=== PATIENT | male | born 1945 | race Caucasian/White ===

== ENCOUNTER 2017-12-07 14:54 | Observation (INO) | payer MEDICARE, OTHER ==
[2017-12-07 16:02] LABS: ABSOLUTE BASOPHILS # (AUTO) 0.1 10^3/uL (0.0-0.2); ABSOLUTE LYMPHOCYTES (AUTO) 0.8 10^3/uL (0.5-4.7); ABSOLUTE MONOCYTES (AUTO) 1.4 10^3/uL (0.1-1.4); ABSOLUTE NEUT (AUTO) 6.9 10^3/uL (1.7-8.2); BASOPHILS % (AUTO) 0.7 % (0-2); EOSINOPHILS % (AUTO) 0.3 % (0-6); HEMATOCRIT 36.8 % (37.9-51.0); HEMOGLOBIN 12.9 g/dL (13.5-17.0); LYMPHOCYTES % (AUTO) 8.4 % (13-45); MEAN CORPUSCULAR HEMOGLOBIN 30.2 pg (27.0-33.4); MEAN CORPUSCULAR HGB CONC 35.2 g/dL (32.0-36.0); MEAN CORPUSCULAR VOLUME 86 fl (80-97); MONOCYTES % (AUTO) 15.6 % (3-13); PLATELET COUNT 244 10^3/uL (150-450); RED BLOOD COUNT 4.29 10^6/uL (4.35-5.55); RED CELL DISTRIBUTION WIDTH 13.6 % (11.5-14.0); TOTAL CELLS COUNTED % (AUTO) 100 %; WHITE BLOOD COUNT 9.2 10^3/uL (4.0-10.5)
--- NOTE | 2017-12-07 16:11 | ER Document Report ---
ED General - General Chief Complaint: General Weakness Stated Complaint: FLU LIKE SYMPTOMS Time Seen by Provider: 12/07/17 15:06 Mode of Arrival: Ambulatory Information source: Patient Notes: 72-year-old male with no previous respiratory issues presents from home with concerns of shortness of breath cough flulike symptoms and body aches. Patient denies any fevers or chills denies any productivity to cough. Patient denies any chest pain. TRAVEL OUTSIDE OF THE [place] IN LAST 30 DAYS: No - HPI Onset: Just prior to arrival Onset/Duration: Sudden Quality of pain: No pain Severity: Moderate Pain Level: Denies Associated symptoms: Body/muscle aches, Nonproductive cough, Shortness of breath Exacerbated by: Denies Relieved by: Denies Similar symptoms previously: No Recently seen / treated by doctor: No Past Medical History - Social History Smoking Status: Never Smoker Cigarette use (# per day): No Chew tobacco use (# tins/day): No Smoking Education Provided: No Family History: Reviewed & Not Pertinent Review of Systems - Review of Systems Notes: REVIEW OF SYSTEMS: CONSTITUTIONAL : Denies fever, chills, or sweats. Denies recent illness. EENT: Denies eye, ear, throat, or mouth pain or symptoms. Denies nasal or sinus congestion or discharge. Denies throat, tongue, or mouth swelling or difficulty swallowing. CARDIOVASCULAR: Denies chest pain. Denies palpitations or racing or irregular heart beat. Denies ankle edema. RESPIRATORY: Admits to shortness of breath difficulty breathing nonproductive cough GASTROINTESTINAL: Denies abdominal pain or distention. Denies nausea, vomiting , or diarrhea. Denies blood in vomitus, stools, or per rectum. Denies black, tarry stools. Denies constipation. GENITOURINARY: Denies difficulty urinating, painful urination, burning, frequency, blood in urine, or discharge. MUSCULOSKELETAL: Admits to body aches SKIN: Denies rash, lesions or sores. HEMATOLOGIC : Denies easy bruising or bleeding. LYMPHATIC: Denies swollen, enlarged glands. NEUROLOGICAL: Denies confusion or altered mental status. Denies passing out or loss of consciousness. Denies dizziness or lightheadedness. Denies headache. Denies weakness or paralysis or loss of use of either side. Denies problems with gait or speech. Denies sensory loss, numbness, or tingling. Denies seizures. PSYCHIATRIC: Denies anxiety or stress. Denies depression, suicidal ideation, or homicidal ideation. ALL OTHER SYSTEMS REVIEWED AND NEGATIVE. Dictation was performed using [employer] voice recognition software PHYSICAL EXAMINATION: GENERAL: Well-appearing, well-nourished and in no acute distress. HEAD: Atraumatic, normocephalic. EYES: Pupils equal round and reactive to light, extraocular movements intact, sclera anicteric, conjunctiva are normal. ENT: Nares patent, oropharynx clear without exudates. Moist mucous membranes. NECK: Normal range of motion, supple without lymphadenopathy LUNGS: Breath sounds clear to auscultation bilaterally and equal. No wheezes rales or rhonchi. Hypoxemia placed on 2 L nasal cannula HEART: Regular rate and rhythm without murmurs ABDOMEN: Soft, nontender, nondistended abdomen. No guarding, no rebound. No masses appreciated. Musculoskeletal: Normal range of motion, no pitting or edema. No cyanosis. NEUROLOGICAL: Cranial nerves grossly intact. Normal speech, normal gait. Normal sensory, motor exams PSYCH: Normal mood, normal affect. SKIN: Warm, Dry, normal turgor, no rashes or lesions noted. Physical Exam - Vital signs Vitals: Resp Pulse Ox 24 H 94 12/07/17 15:23 12/07/17 15:23 Course - Re-evaluation Re-evalutation: 12/07/17 18:58 She was noted to be quite hypoxic satting 88% on room air, he is not on oxygen at home and has no respiratory history, he was placed on 2 L nasal cannula satting 94%. Patient is noted to be hypokalemic and potassium was ordered. Patient will be admitted to the hospitalist service for further evaluation and care of this hypoxemia - Vital Signs Vital signs: Temp Pulse Resp BP Pulse Ox 17 160/89 H 93 12/07/17 15:45 12/07/17 15:45 12/07/17 15:45 - Laboratory Result Diagrams: 12/07/17 15:42 12/07/17 15:42 Laboratory results interpreted by me: 12/07/17 12/07/17 12/07/17 15:25 15:42 15:42 RBC 4.29 L Hgb 12.9 L Hct 36.8 L Lymphocytes % 8.4 L Monocytes % 15.6 H Potassium 2.8 L* Chloride 108 H Glucose 117 H Total Protein 6.2 L Urine Protein 30 H Urine Blood MODERATE H Urine Urobilinogen 2.0 H - Diagnostic Test Radiology reviewed: Image reviewed, Reports reviewed Critical Care Note - Critical Care Note Total time excluding time spent on procedures (mins): 34 Comments: 34 minutes of critical care time spent in direct contact evaluating and reevaluating the patient, treating symptoms, reviewing labs and studies and speaking with family and consultants excluding any procedures Discharge - Discharge Clinical Impression: Hypoxemia, Hypokalemia Condition: Stable Disposition: ADMITTED OBSERVATION Admitting Provider: Hospitalist Unit Admitted: Telemetry
--- NOTE | 2017-12-07 16:14 | RADIOLOGY REPORT (SQ) ---
EXAM DESCRIPTION: CHEST PA/LAT COMPLETED DATE/TIME: 12/07/2017 4:05 pm REASON FOR STUDY: sob COMPARISON: None. EXAM PARAMETERS: NUMBER OF VIEWS: two views TECHNIQUE: Digital Frontal and Lateral radiographic views of the chest acquired. RADIATION DOSE: NA LIMITATIONS: EKG leads over the chest on the frontal view FINDINGS: LUNGS AND PLEURA: No opacities, masses or pneumothorax. No pleural effusion. MEDIASTINUM AND HILAR STRUCTURES: No masses or contour abnormalities. HEART AND VASCULAR STRUCTURES: Heart normal size. No evidence for failure. BONES: Osteopenic. No acute compression deformity in the thoracic spine HARDWARE: None in the chest. OTHER: No other significant finding. IMPRESSION: NO SIGNIFICANT RADIOGRAPHIC FINDING IN THE CHEST. TECHNICAL DOCUMENTATION: JOB ID: [id number] [employer]- All Rights Reserved
[2017-12-07 16:16] LABS: APPEARANCE,URINE SLIGHTLY-CLOUDY; BILIRUBIN,URINE NEGATIVE (NEGATIVE); COLOR,URINE YELLOW; GLUCOSE, URINE NEGATIVE (NEGATIVE); KETONES,URINE NEGATIVE (NEGATIVE); LEUKOCYTE ESTERASE,URINE NEGATIVE (NEGATIVE); NITRITE,URINE NEGATIVE (NEGATIVE); PROTEIN,URINE 30 mg/dL (NEGATIVE); URINE SPECIFIC GRAVITY 1.017
[2017-12-07 16:26] LABS: ALANINE AMINOTRANSFERASE 31 U/L (21-72); ALBUMIN 3.8 g/dL (3.5-5.0); ALKALINE PHOSPHATASE 81 U/L (38-126); ANION GAP 11 (5-19); ASPARTATE AMINO TRANSFERASE 27 U/L (17-59); BILIRUBIN,DIRECT 0.3 mg/dL (0.0-0.4); BILIRUBIN,TOTAL 1.1 mg/dL (0.2-1.3); BLOOD UREA NITROGEN 16 mg/dL (7-20); CARBON DIOXIDE 23 mmol/L (22-30); CHLORIDE 108 mmol/L (98-107); GLUCOSE 117 mg/dL (75-110); SODIUM 141.5 mmol/L (137-145); TOTAL PROTEIN 6.2 g/dL (6.3-8.2)
[2017-12-07 16:30] LABS: POTASSIUM 2.8 mmol/L (3.6-5.0)
[2017-12-07] MEDS ORDERED: POTASSIUM CHLORIDE 10 MEQ TABLET.SA PO ONE (16:34)
[2017-12-07 17:26] LABS: A TYPE INFLUENZA AG NEGATIVE (NEGATIVE); B INFLUENZA AG NEGATIVE (NEGATIVE)
[2017-12-07] MEDS ORDERED: IPRATROPIUM/ALBUTEROL 0.5-2.5 MG/3 ML AMPUL NEB ONE ×2 (17:51→17:52)
[2017-12-07] MEDS ORDERED: ACETAMINOPHEN 325 MG TABLET PO PRN (19:24)
--- NOTE | 2017-12-07 19:35 | PDOC H&P ---
History of Present Illness Admission Date/PCP: 12/07/17 17:[address] Patterson at [facility] History of Present Illness: VIOLETTE IRIZARRY is a 72 year old male who presented to the hospital with shortness of breath cough generalized weakness body aches. He is a former smoker. He is unable to give me his medical history other than the fact that he is diagnosed with prostate cancer which is followed at [facility] and he is on Zytiga. His daughter is at the bedside and they both do not have a list of his medications or past medical history. They say that he did have a heart attack many years ago but do not have the details. He also had a stroke many years ago. Has a history of hypertension. Denies a history of diabetes. No medication or past medical history available. We will ask the station to get a copy of his outpatient records. I will also request an oncology consult to with his prostate cancer management and Zytiga since he is repeating in a research trial. Chest x-ray was unremarkable. He was found to have hypokalemia and was given potassium chloride and was also hypoxic and was given duo nebs in the emergency room. Rapid flu was negative. Past Medical History Cardiac Medical History: Reports: Hypertension Social History Smoking Status: Former Smoker Frequency of Alcohol Use: Rare Family History Family History: Hypertension Parental Family History Reviewed: Yes Children Family History Reviewed: Yes Sibling(s) Family History Reviewed.: Yes Medication/Allergy Allergies/Adverse Reactions: Sulfa (Sulfonamide Antibiotics) Allergy (Verified 12/07/17 18:58) Review of Systems Constitutional: PRESENT: fever(s), weakness. ABSENT: headache(s), night sweats Eyes: ABSENT: visual disturbances Ears: ABSENT: hearing changes Nose, Mouth, and Throat: ABSENT: sore throat Cardiovascular: ABSENT: chest pain, edema Respiratory: PRESENT: cough Gastrointestinal: ABSENT: abdominal pain, heartburn, vomiting Musculoskeletal: ABSENT: joint swelling Neurological: ABSENT: paresthesias Psychiatric: ABSENT: hallucinations Physical Exam Vital Signs: Temp Pulse Resp BP Pulse Ox 17 160/89 H 93 12/07/17 15:45 12/07/17 15:45 12/07/17 15:45 Head exam: PRESENT: atraumatic, normocephalic Ear exam: PRESENT: normal external ear exam Neck exam: PRESENT: full ROM. ABSENT: JVD, tenderness, tracheal deviation Respiratory exam: PRESENT: rhonchi, unlabored. ABSENT: crackles Cardiovascular exam: PRESENT: RRR GI/Abdominal exam: PRESENT: normal bowel sounds, soft. ABSENT: tenderness Rectal exam: PRESENT: deferred Psychiatric exam: PRESENT: normal mood Additional comments: Elderly gentleman lying in bed not in acute distress Lungs: He has scattered rhonchi bilaterally no crackles heard normal respiratory effort Cardiac: S1-S2 regular, murmurs heard no JVD no thrills palpable he has trace ankle edema bilaterally no peripheral cyanosis Abdomen: Soft, no focal tenderness normal bowel sounds rectal exam deferred Skin: Warm and dry He is awake and alert oriented 3 speech is clear and fluent no facial droop. Next Results Impressions: Chest X-Ray 12/07/17 15:06 IMPRESSION: NO SIGNIFICANT RADIOGRAPHIC FINDING IN THE CHEST. Assessment & Plan - Diagnosis (1) Acute bronchitis Is this a current diagnosis for this admission?: Yes (2) Hypokalemia Is this a current diagnosis for this admission?: Yes (3) Hypoxemia Is this a current diagnosis for this admission?: Yes - Time Time Spent: 50 to 70 Minutes - Plan Summary Plan Summary: Generalized weakness hypokalemia acute viral illness and hypoxia in an elderly patient with multiple comorbidities including prostate cancer. Continue oxygen. Check serial cardiac enzymes. Neb treatments and symptomatic management. I anticipate his stay will be less than 2 midnights. He will be under observation.
[2017-12-07 20:40] LABS: CREATINE KINASE MB 2.85 ng/mL (<4.55)
[2017-12-07 20:46] LABS: TROPONIN I 0.045 ng/mL
[2017-12-07] MEDS: LEVALBUTEROL HCL NEB 0.63 MG/3 ML AMPUL NEB SCH (21:10)
[2017-12-08 02:43] LABS: CREATINE KINASE MB 4.07 ng/mL (<4.55); TROPONIN I 0.028 ng/mL
[2017-12-08] MEDS: LANSOPRAZOLE 15 MG TAB.RAP.DR PO SCH (05:27)
[2017-12-08] MEDS: LEVALBUTEROL HCL NEB 0.63 MG/3 ML AMPUL NEB SCH ×3 (07:51→20:05)
[2017-12-08 08:31] LABS: ABSOLUTE BASOPHILS # (AUTO) 0.1 10^3/uL (0.0-0.2); ABSOLUTE EOSINOPHILS # (AUTO) 0.1 10^3/uL (0.0-0.6); ABSOLUTE LYMPHOCYTES (AUTO) 1.3 10^3/uL (0.5-4.7); ABSOLUTE NEUT (AUTO) 5.6 10^3/uL (1.7-8.2); EOSINOPHILS % (AUTO) 1.7 % (0-6); HEMATOCRIT 35.8 % (37.9-51.0); HEMOGLOBIN 12.5 g/dL (13.5-17.0); LYMPHOCYTES % (AUTO) 16.1 % (13-45); MEAN CORPUSCULAR HEMOGLOBIN 29.9 pg (27.0-33.4); MEAN CORPUSCULAR VOLUME 85 fl (80-97); MONOCYTES % (AUTO) 11.8 % (3-13); PLATELET COUNT 219 10^3/uL (150-450); RED BLOOD COUNT 4.19 10^6/uL (4.35-5.55); RED CELL DISTRIBUTION WIDTH 13.9 % (11.5-14.0); SEGMENTED NEUTROPHILS % (AUTO) 69.4 % (42-78); TOTAL CELLS COUNTED % (AUTO) 100 %; WHITE BLOOD COUNT 8.1 10^3/uL (4.0-10.5)
--- NOTE | 2017-12-08 08:48 | PDOC CONSULTATION ---
Consultation Consult Date: 12/08/17 Attending physician:: NOLAN OAKES Consult reason:: cough, sob, confusion, congestion, uri, stage iv prostate ca History of Present Illness Admission Date/PCP: 12/07/17 17:58 Patient complains of: cough, sob History of Present Illness: 72-year-old male with known history of stage IV prostate cancer, the patient himself is a poor historian, but he does have family at bedside who knows some of what is been going on, he does see a [facility] onc[facility] physician, as noted in the hospitalist note, and has been on Zytiga plus prednisone, although they mention its on investigational protocol this is a standard therapy for stage IV prostate cancer so most likely on standard therapy. It sounds like he had noted bone, lung and liver metastasis at diagnosis, and has been on this therapy for what sounds like about a year. He is going to be coming up on reimaging scans for restaging, but it sounds like she has been tolerating the therapy well. He comes in with cough, congestion, confusion, and family feels like they have been more and more confused over the last 6 months, possibly early signs of dementia. Past Medical History Cardiac Medical History: Reports: Hypertension Malignancy Medical History: Reports: Other - Prostate cancer Social History Information Source: Relative Smoking Status: Former Smoker Frequency of Alcohol Use: None Drugs: None - Advance Directive Resuscitation Status: Full Code Family History Family History: Hypertension Parental Family History Reviewed: Yes Children Family History Reviewed: Yes Sibling(s) Family History Reviewed.: Yes Medication/Allergy Home Medications: Atorvastatin Calcium [Lipitor 80 mg Tablet] 80 mg PO QHS 12/07/17 Prednisone [Deltasone 5 mg Tablet] 5 mg PO DAILY 12/07/17 Spironolactone [Aldactone 25 mg Tablet] 12.5 mg PO DAILY 12/07/17 Allergies/Adverse Reactions: Sulfa (Sulfonamide Antibiotics) Allergy (Verified 12/07/17 18:58) Review of Systems ROS unobtainable: Due to mental status Physical Exam Vital Signs: Temp Pulse Resp BP Pulse Ox 98.4 F 72 18 171/92 H 99 12/08/17 08:01 12/08/17 08:01 12/08/17 08:01 12/08/17 08:01 12/08/17 08:01 Intake & Output 12/07/17 12/08/17 12/09/17 06:59 06:59 06:59 Intake Total 100 Output Total 175 Balance -75 Weight 103.2 kg General appearance: PRESENT: no acute distress, well-developed, well-nourished Head exam: PRESENT: atraumatic, normocephalic Eye exam: PRESENT: conjunctiva pink, EOMI, PERRLA. ABSENT: scleral icterus Ear exam: PRESENT: normal external ear exam Mouth exam: PRESENT: moist, tongue midline Neck exam: ABSENT: carotid bruit, JVD, lymphadenopathy, thyromegaly Respiratory exam: PRESENT: clear to auscultation magan. ABSENT: rales, rhonchi, wheezes Cardiovascular exam: PRESENT: RRR. ABSENT: diastolic murmur, rubs, systolic murmur Pulses: PRESENT: normal dorsalis pedis pul Vascular exam: PRESENT: normal capillary refill GI/Abdominal exam: PRESENT: normal bowel sounds, soft. ABSENT: distended, guarding, mass, organolmegaly, rebound, tenderness Rectal exam: PRESENT: deferred Extremities exam: PRESENT: full ROM. ABSENT: calf tenderness, clubbing, pedal edema Neurological exam: PRESENT: alert, awake, oriented to person, oriented to place , oriented to time, oriented to situation, CN II-XII grossly intact. ABSENT: motor sensory deficit Psychiatric exam: PRESENT: appropriate affect, normal mood. ABSENT: homicidal ideation, suicidal ideation Skin exam: PRESENT: dry, intact, warm. ABSENT: cyanosis, rash Results Laboratory Results: 12/08/17 08:11 12/08/17 08:11 WBC 8.1 RBC 4.19 L Hgb 12.5 L Hct 35.8 L MCV 85 MCH 29.9 MCHC 35.0 RDW 13.9 Plt Count 219 Seg Neutrophils % 69.4 Lymphocytes % 16.1 Monocytes % 11.8 Eosinophils % 1.7 Basophils % 1.0 Absolute Neutrophils 5.6 Absolute Lymphocytes 1.3 Absolute Monocytes 1.0 Absolute Eosinophils 0.1 Absolute Basophils 0.1 12/07/17 12/08/17 19:59 02:04 CK-MB (CK-2) 2.85 4.07 Troponin I 0.045 0.028 Impressions: Chest X-Ray 12/07/17 15:06 IMPRESSION: NO SIGNIFICANT RADIOGRAPHIC FINDING IN THE CHEST. Assessment & Plan - Diagnosis (1) Prostate cancer Is this a current diagnosis for this admission?: Yes Plan: Patient with stage IV prostate cancer, we will continue patient on Zytiga and prednisone, it is not myelosuppressive and should not interact with any other medications that he is on. So we will write for him to continue home medication. We have offered our services as an outpatient to see patient for this condition and assist [facility] with this care here in [place]. They will be thinking about it. We will follow. - Time Time Spent: Greater than 70 Minutes - Inpatient Certification Based on my medical assessment, after consideration of the patient's comorbidities, presenting symptoms, or acuity I expect that the services needed warrant INPATIENT care.: Yes I certify that my determination is in accordance with my understanding of Medicare's requirements for reasonable and necessary INPATIENT services [42 CFR 412.3e].: Yes Medical Necessity: Need For Continuous Telemetry Monitoring, Need for IV Antibiotics
[2017-12-08 08:55] LABS: ANION GAP 10 (5-19); BLOOD UREA NITROGEN 15 mg/dL (7-20); CARBON DIOXIDE 25 mmol/L (22-30); CHLORIDE 107 mmol/L (98-107); GLUCOSE 110 mg/dL (75-110); MAGNESIUM 2.1 mg/dL (1.6-2.3); PHOSPHORUS 3.3 mg/dL (2.5-4.5); POTASSIUM 3.1 mmol/L (3.6-5.0); SODIUM 141.6 mmol/L (137-145)
[2017-12-08 09:06] LABS: CREATINE KINASE MB 4.08 ng/mL (<4.55); TROPONIN I 0.02 ng/mL
[2017-12-08] MEDS: ENOXAPARIN SODIUM INJ 40 MG/0.4 ML DISP.SYRIN SUBCUT SCH (10:25)
[2017-12-08] MEDS ORDERED: POTASSIUM CHLORIDE 10 MEQ TABLET.SA PO ONE (11:45)
--- NOTE | 2017-12-08 19:25 | PDOC PROGRESS REPORT ---
Subjective Progress Note for:: 12/08/17 Subjective:: Pt states that his breathing to better. Pt states that he is doing well. Reason For Visit: GENERALIZED WEAKNESS, ACUTE HYPOXIA, VIRAL Physical Exam Vital Signs: Temp Pulse Resp BP Pulse Ox 98.0 F 73 18 123/72 95 12/08/17 16:25 12/08/17 16:25 12/08/17 16:25 12/08/17 16:25 12/08/17 16:25 Intake & Output 12/07/17 12/08/17 12/09/17 06:59 06:59 06:59 Intake Total 100 624 Output Total 175 Balance -75 624 Weight 103.2 kg General appearance: PRESENT: no acute distress, well-developed, well-nourished Head exam: PRESENT: atraumatic, normocephalic Eye exam: PRESENT: conjunctiva pink, EOMI. ABSENT: scleral icterus Ear exam: PRESENT: normal external ear exam Mouth exam: PRESENT: moist, tongue midline Neck exam: ABSENT: carotid bruit, JVD, lymphadenopathy, thyromegaly Respiratory exam: PRESENT: other - + coarse right side, + good breath sounds in upper lobes Cardiovascular exam: PRESENT: RRR. ABSENT: diastolic murmur, rubs, systolic murmur Pulses: PRESENT: normal dorsalis pedis pul Vascular exam: PRESENT: normal capillary refill GI/Abdominal exam: PRESENT: normal bowel sounds, soft. ABSENT: distended, guarding, mass, organolmegaly, rebound, tenderness Rectal exam: PRESENT: deferred Extremities exam: PRESENT: full ROM. ABSENT: calf tenderness, clubbing, pedal edema Neurological exam: PRESENT: alert, altered, oriented to person, oriented to place, CN II-XII grossly intact Psychiatric exam: PRESENT: appropriate affect, normal mood. ABSENT: homicidal ideation, suicidal ideation Skin exam: PRESENT: dry, intact, warm. ABSENT: cyanosis, rash Results Laboratory Results: 12/08/17 08:11 12/08/17 08:11 12/08/17 12/08/17 12/08/17 08:11 08:11 08:11 WBC 8.1 RBC 4.19 L Hgb 12.5 L Hct 35.8 L MCV 85 MCH 29.9 MCHC 35.0 RDW 13.9 Plt Count 219 Seg Neutrophils % 69.4 Lymphocytes % 16.1 Monocytes % 11.8 Eosinophils % 1.7 Basophils % 1.0 Absolute Neutrophils 5.6 Absolute Lymphocytes 1.3 Absolute Monocytes 1.0 Absolute Eosinophils 0.1 Absolute Basophils 0.1 Sodium 141.6 Potassium 3.1 L Chloride 107 Carbon Dioxide 25 Anion Gap 10 BUN 15 Creatinine 0.87 Est GFR ( Amer) > 60 Est GFR (Non-Af Amer) > 60 Glucose 110 Calcium 9.0 Phosphorus 3.3 Magnesium 2.1 TSH 2.10 12/07/17 12/08/17 12/08/17 19:59 02:04 08:11 CK-MB (CK-2) 2.85 4.07 4.08 Troponin I 0.045 0.028 0.020 Impressions: Chest X-Ray 12/07/17 15:06 IMPRESSION: NO SIGNIFICANT RADIOGRAPHIC FINDING IN THE CHEST. Assessment & Plan - Diagnosis (1) Acute bronchitis Is this a current diagnosis for this admission?: Yes Plan: Will CXR in am. Will place pt on Levaquin. (2) Hypokalemia Is this a current diagnosis for this admission?: Yes Plan: Pt give Potassium replacement. Will check BMP and Magnesium in am . (3) Prostate cancer Is this a current diagnosis for this admission?: Yes Plan: Per Oncology. (4) Debility Is this a current diagnosis for this admission?: Yes Plan: PT/OT order. - Time Time Spent with patient: 15-24 minutes
--- NOTE | 2017-12-08 20:28 | RADIOLOGY REPORT (SQ) ---
EXAM DESCRIPTION: CHEST PA/LAT COMPLETED DATE/TIME: 12/08/2017 8:13 pm REASON FOR STUDY: shortness of breath COMPARISON: 12/07/2017. EXAM PARAMETERS: NUMBER OF VIEWS: two views TECHNIQUE: Digital Frontal and Lateral radiographic views of the chest acquired. RADIATION DOSE: NA LIMITATIONS: none FINDINGS: LUNGS AND PLEURA: No opacities, masses or pneumothorax. No pleural effusion. MEDIASTINUM AND HILAR STRUCTURES: No masses or contour abnormalities. HEART AND VASCULAR STRUCTURES: Heart normal size. No evidence for failure. BONES: No acute findings. HARDWARE: None in the chest. OTHER: No other significant finding. IMPRESSION: NO SIGNIFICANT RADIOGRAPHIC FINDING IN THE CHEST. TECHNICAL DOCUMENTATION: JOB ID: [id number] [employer]- All Rights Reserved
[2017-12-08] MEDS ORDERED: LEVOFLOXACIN 500 MG/D5W RTU 500 MG/100 ML RTUPB IV SCH (22:00)
[2017-12-09] MEDS: LANSOPRAZOLE 15 MG TAB.RAP.DR PO SCH (06:13)
[2017-12-09] MEDS ORDERED: ABIRATERONE ACETATE 1000 MG PO SCH (08:00)
--- NOTE | 2017-12-09 08:11 | PDOC PROGRESS REPORT ---
Subjective Progress Note for:: 12/09/17 Subjective:: Patient states that he is feeling better. He is able to get up out of bed and walk to the [place], which is a big improvement. He is very concerned about his . He took his last Zytiga this morning. He states that he called for a refill last week, but this still has not arrived. ROS: denies dyspnea. Eating well. Reason For Visit: Oncology consult was requested for prostate cancer. Physical Exam Vital Signs: Temp Pulse Resp BP Pulse Ox 97.4 F 73 18 165/93 H 96 12/09/17 04:07 12/09/17 04:07 12/09/17 04:07 12/09/17 04:07 12/09/17 04:07 Intake & Output 12/08/17 12/09/17 12/10/17 06:59 06:59 06:59 Intake Total 100 824 Output Total 175 Balance -75 824 Weight 103.2 kg General appearance: PRESENT: no acute distress, other - Overweight, 72 year old male, up walking around in room. Head exam: PRESENT: atraumatic Respiratory exam: PRESENT: unlabored Neurological exam: PRESENT: alert, awake Psychiatric exam: ABSENT: agitated, depressed Focused psych exam: ABSENT: pressured speech, restlessness Skin exam: PRESENT: normal color Results Laboratory Results: 12/08/17 08:11 12/08/17 08:11 12/08/17 12/08/17 12/08/17 08:11 08:11 08:11 WBC 8.1 RBC 4.19 L Hgb 12.5 L Hct 35.8 L MCV 85 MCH 29.9 MCHC 35.0 RDW 13.9 Plt Count 219 Seg Neutrophils % 69.4 Lymphocytes % 16.1 Monocytes % 11.8 Eosinophils % 1.7 Basophils % 1.0 Absolute Neutrophils 5.6 Absolute Lymphocytes 1.3 Absolute Monocytes 1.0 Absolute Eosinophils 0.1 Absolute Basophils 0.1 Sodium 141.6 Potassium 3.1 L Chloride 107 Carbon Dioxide 25 Anion Gap 10 BUN 15 Creatinine 0.87 Est GFR ( Amer) > 60 Est GFR (Non-Af Amer) > 60 Glucose 110 Calcium 9.0 Phosphorus 3.3 Magnesium 2.1 TSH 2.10 12/07/17 12/08/17 12/08/17 19:59 02:04 08:11 CK-MB (CK-2) 2.85 4.07 4.08 Troponin I 0.045 0.028 0.020 Impressions: Chest X-Ray 12/08/17 00:00 IMPRESSION: NO SIGNIFICANT RADIOGRAPHIC FINDING IN THE CHEST. Assessment & Plan - Diagnosis (1) Prostate cancer Is this a current diagnosis for this admission?: Yes Plan: Currently stable, but needs to continue with current meds. I tried to call the specialty pharmacy this morning, but they were not yet open. Meds needs to be overnighted today, if possible. (2) Acute bronchitis Is this a current diagnosis for this admission?: Yes Plan: Improving. Agree with current treatment plan. Please call if needed. Will follow as outpatient if he desires. He is currently followed by [facility].
[2017-12-09] MEDS: LEVALBUTEROL HCL NEB 0.63 MG/3 ML AMPUL NEB SCH (08:40)
[2017-12-09] MEDS ORDERED: PREDNISONE 5 MG TABLET PO SCH (09:00)
[2017-12-09 10:23] VITALS: BP 108/60
[2017-12-09] MEDS: ENOXAPARIN SODIUM INJ 40 MG/0.4 ML DISP.SYRIN SUBCUT SCH (10:23)
--- NOTE | 2017-12-09 11:10 | PDOC DISCHARGE SUMMARY ---
General - Admit/Disc Date/PCP Admission Date/Primary Care Provider: 12/07/17 17:58 Discharge Date: 12/09/17 - Discharge Diagnosis (1) Acute bronchitis Is this a current diagnosis for this admission?: Yes Summary: She was placed on steroids, breathing treatments, and antibiotics. Patient's Restoril function improved lately. Patient was discharged home on Levaquin and albuterol inhaler. (2) Debility Is this a current diagnosis for this admission?: Yes Summary: Patient has been ambulating safely around room and with physical therapy. Will arrange for home health PT (3) Hypokalemia Is this a current diagnosis for this admission?: Yes Summary: Pt received potassium replacement. (4) Prostate cancer Is this a current diagnosis for this admission?: Yes Summary: Patient continued on home medication. - Additional Information Resuscitation Status: Full Code Discharge Diet: Cardiac Discharge Activity: Activity As Tolerated Prescriptions: Levofloxacin [Levaquin 500 mg Tablet] 500 mg PO DAILY #6 tablet Home Medications: Atorvastatin Calcium [Lipitor 80 mg Tablet] 80 mg PO QHS 12/07/17 Prednisone [Deltasone 5 mg Tablet] 5 mg PO [id number] 12/07/17 Spironolactone [Aldactone 25 mg Tablet] 12.5 mg PO DAILY 12/07/17 Abiraterone Acetate [Zytiga 250 mg Tablet] 1,000 mg PO QAM 12/08/17 Amlodipine Besylate [Norvasc 5 mg Tablet] 5 mg PO DAILY 12/08/17 Clonidine HCl [Catapres 0.1 mg Tablet] 0.1 mg PO DAILY 12/08/17 Clopidogrel Bisulfate [Clopidogrel] 75 mg PO DAILY 12/08/17 Losartan Potassium [Cozaar 100 mg Tablet] 100 mg PO DAILY 12/08/17 Levofloxacin [Levaquin 500 mg Tablet] 500 mg PO DAILY #6 tablet 12/09/17 History of Present Illness Patient complains of: Generalized weakness with body aches. History of Present Illness: VIOLETTE IRIZARRY is a 72 year old male sent to the emergency department with complaint of generalized weakness and body aches. Patient states that he also was coughing as well. Patient's had been sick and was hospitalist as well. Patient's x-ray did not demonstrate infiltrate however patient's presentation was consistent with acute bronchitis. Patient was placed on steroids and breathing treatments. Patient was placed on Levaquin for bronchitis. Patient work with PT OT and has done well. Patient was stable for discharge home. Patient was seen by oncology during hospitalization who agreed with continuation of patient's medication. Hospital Course Hospital Course: VIOLETTE IRIZARRY is a 72 year old male sent to the emergency department with complaint of generalized weakness and body aches. Patient states that he also was coughing as well. Patient's had been sick and was hospitalist as well. Patient's x-ray did not demonstrate infiltrate however patient's presentation was consistent with acute bronchitis. Patient was placed on steroids and breathing treatments. Patient was placed on Levaquin for bronchitis. Patient work with PT OT and has done well. Patient was stable for discharge home. Patient was seen by oncology during hospitalization who agreed with continuation of patient's medication. Physical Exam Vital Signs: Temp Pulse Resp BP Pulse Ox 98.0 F 71 16 108/60 97 12/09/17 07:00 12/09/17 07:00 12/09/17 07:00 12/09/17 07:00 12/09/17 07:00 Intake & Output 12/08/17 12/09/17 12/10/17 06:59 06:59 06:59 Intake Total 100 824 Output Total 175 Balance -75 824 Weight 103.2 kg General appearance: PRESENT: no acute distress, well-developed, well-nourished Head exam: PRESENT: atraumatic, normocephalic Eye exam: PRESENT: conjunctiva pink, EOMI. ABSENT: scleral icterus Ear exam: PRESENT: normal external ear exam Mouth exam: PRESENT: moist, tongue midline Neck exam: ABSENT: carotid bruit, JVD, lymphadenopathy, thyromegaly Respiratory exam: PRESENT: clear to auscultation magan. ABSENT: rales, rhonchi, wheezes Cardiovascular exam: PRESENT: RRR. ABSENT: diastolic murmur, rubs, systolic murmur Pulses: PRESENT: normal dorsalis pedis pul Vascular exam: PRESENT: normal capillary refill GI/Abdominal exam: PRESENT: normal bowel sounds, soft. ABSENT: distended, guarding, mass, organolmegaly, rebound, tenderness Rectal exam: PRESENT: deferred Extremities exam: PRESENT: full ROM. ABSENT: calf tenderness, clubbing, pedal edema Neurological exam: PRESENT: alert, awake, oriented to person, oriented to place , oriented to time, oriented to situation, CN II-XII grossly intact. ABSENT: motor sensory deficit Psychiatric exam: PRESENT: appropriate affect, normal mood. ABSENT: homicidal ideation, suicidal ideation Skin exam: PRESENT: dry, intact, warm. ABSENT: cyanosis, rash Results Laboratory Results: 12/08/17 08:11 12/08/17 08:11 12/07/17 12/08/17 12/08/17 19:59 02:04 08:11 CK-MB (CK-2) 2.85 4.07 4.08 Troponin I 0.045 0.028 0.020 Impressions: Chest X-Ray 12/08/17 00:00 IMPRESSION: NO SIGNIFICANT RADIOGRAPHIC FINDING IN THE CHEST. Plan Time Spent: Greater than 30 Minutes
== END 2017-12-09 12:25 | disposition home or self-care (01) ==
LOC: ER 14:54 → EH 17:58 → OBSVTOIN 17:58 → INTOOBSV 17:58 → 4N 20:49
PROVIDERS: ADMIT Internal Medicine; ATTEND Internal Medicine
PROC: 3E0F7GC Introduction of Other Therapeutic Substance into Respiratory Tract, Via Natural or Artificial Opening (ICD-10-PCS; principal; 2017-12-07)
DX: J20.9 Acute bronchitis, unspecified (principal); R53.81 Other malaise; E87.6 Hypokalemia; C61 Malignant neoplasm of prostate; R41.0 Disorientation, unspecified; R09.02 Hypoxemia; E66.3 Overweight; R53.1 Weakness; R52 Pain, unspecified; Z68.36 Body mass index [BMI] 36.0-36.9, adult; I25.2 Old myocardial infarction; Z79.899 Other long term (current) drug therapy; Z79.02 Long term (current) use of antithrombotics/antiplatelets; Z87.891 Personal history of nicotine dependence; Z82.49 Family history of ischemic heart disease and other diseases of the circulatory system; Z86.73 Personal history of transient ischemic attack (TIA), and cerebral infarction without residual deficits
CPT/HCPCS: 94640 ×4; 99285; 36415 ×2; 82553 ×2; 83735; 84100; 84443; 85025 ×2; 80048; 80053; 81001; 84484 ×2; 85379; 87804; 71046 ×2; 97110; 97162; G0378 ×4; A9270 ×8; J1956; J1650; J3490; G8978; G8979; J7614; J7620

== ENCOUNTER 2018-08-31 03:47 | Inpatient (IN) | payer MEDICARE ==
--- NOTE | 2018-08-31 04:18 | ER Document Report ---
ED General - General Chief Complaint: Bloody Stools Stated Complaint: BLOOD IN STOOL Time Seen by Provider: 08/31/18 04:01 Notes: Pt is a 73 y/o male presenting to the ED via EMS for vomiting and diarrhea. Pt. stated that around 0030 this morning he started with diarrhea, stating about 7 episodes noting bright red blood in stool. Stated that he has also vomited x3 NBNB. Pt. denies abd pain, fever, CP, SOB, dysuria. Stated that hes rectum hurts. Stated that he had a colonoscopy on 08/26 and Polyps and a Tumor biopsy were removed by Dr. Jimbo Black. Stated that he was instructed to stop his Clopidogrel the day prior to that procedure. Stated that he thinks he may have taken one Clopidogrel on accident since then, but stated he realized he did it and did not continue to take it. Per EMS initial on scene BP was 92/62 with NSS bolus of 800cc EMS was able to get BP to 108/66. Initial BP in ED was 120 systolic. Past medical history: Prostate, lung, bone cancer, CVA, coronary artery disease , hypertension, hyperlipidemia Medications: Spironolactone, clonidine, clopidogrel, atorvastatin, sertraline, losartan HCTZ Allergies: Sulfa TRAVEL OUTSIDE OF THE [place] IN LAST 30 DAYS: No - Related Data Allergies/Adverse Reactions: Sulfa (Sulfonamide Antibiotics) Allergy (Verified 12/07/17 18:58) Past Medical History - General Information source: Patient - Social History Smoking Status: Never Smoker Lives with: Family Family History: Hypertension Patient has suicidal ideation: No Patient has homicidal ideation: No - Past Medical History Cardiac Medical History: Reports: Hx Hypertension Renal/ Medical History: Denies: Hx Peritoneal Dialysis Review of Systems - Review of Systems Constitutional: See HPI EENT: No symptoms reported Cardiovascular: See HPI Respiratory: See HPI Gastrointestinal: See HPI Genitourinary: See HPI Musculoskeletal: See HPI Skin: See HPI Hematologic/Lymphatic: See HPI Neurological/Psychological: No symptoms reported Physical Exam - Vital signs Vitals: Temp 97.7 F 08/31/18 03:51 - Notes Notes: GENERAL: Alert, interacts well. No acute distress. Pallor HEAD: Normocephalic, atraumatic. EYES: Pupils equal, round, and reactive to light. Extraocular movements intact. ENT: Oral mucosa moist, tongue midline. NECK: Full range of motion. Supple. Trachea midline. LUNGS: Clear to auscultation bilaterally, no wheezes, rales, or rhonchi. No respiratory distress. HEART: Regular rate and rhythm. No murmur ABDOMEN: Soft, non-tender. Non-distended. Bowel sounds present in all 4 quadrants. EXTREMITIES: Moves all 4 extremities spontaneously. No edema, normal radial and dorsalis pedis pulses bilaterally. No cyanosis. BACK: no cervical, thoracic, lumbar midline tenderness. No saddle anesthesia, normal distal neurovascular exam. NEUROLOGICAL: Alert and oriented x3. Normal speech. cranial nerves II through XII grossly intact. PSYCH: Normal affect, normal mood. SKIN: Warm, dry, normal turgor, pallor. No rashes or lesions noted. RECTUM: no obvious fissures seen, no external hemorrhoids seen. Pain upon internal exam, no thrombosed hemorrhoids felt patient not actively bleeding. No melena seen. Course - Re-evaluation Re-evalutation: Discussed case with Dr. Choi who stated to transfuse the Pt. as quick as possible and he would call his team to come into the ED for an emergent colonoscopy. He also stated to call the hospitalist for admission and bed assignment. Pt currently hemodynamically stable. No active bleeding from rectum upon exam. Patient denies any more episodes of diarrhea or rectal bleeding in the emergency department. Dr. Jordan contacted who will admit to ICU bed. 0615 08/31/2018 Current Vitals BP 156/86 HR 71 RR 14 SPO@ RA 97% - Vital Signs Vital signs: Temp Pulse Resp BP Pulse Ox 98.5 F 66 16 141/88 H 100 08/31/18 06:05 08/31/18 06:30 08/31/18 06:30 08/31/18 06:28 08/31/18 06:30 - Laboratory Result Diagrams: 08/31/18 04:04 08/31/18 04:04 Laboratory results interpreted by me: 08/31/18 08/31/18 08/31/18 04:04 04:04 04:04 WBC 12.6 H RBC 2.76 L Hgb 8.2 L Hct 23.9 L RDW 14.7 H Seg Neutrophils % 78.9 H Lymphocytes % 12.0 L Absolute Neutrophils 9.9 H Chloride 109 H Carbon Dioxide 21 L BUN 21 H Glucose 120 H AST 14 L Total Protein 5.6 L Albumin 3.1 L Crossmatch See Detail Discharge - Discharge Clinical Impression: Rectal bleeding Condition: Fair Disposition: ADMITTED INPATIENT Admitting Provider: [facility] Unit Admitted: ICU
[2018-08-31 04:23] LABS: ABSOLUTE BASOPHILS # (AUTO) 0.1 10^3/uL (0.0-0.2); ABSOLUTE EOSINOPHILS # (AUTO) 0.2 10^3/uL (0.0-0.6); ABSOLUTE LYMPHOCYTES (AUTO) 1.5 10^3/uL (0.5-4.7); ABSOLUTE MONOCYTES (AUTO) 0.9 10^3/uL (0.1-1.4); ABSOLUTE NEUT (AUTO) 9.9 10^3/uL (1.7-8.2); EOSINOPHILS % (AUTO) 1.3 % (0-6); HEMATOCRIT 23.9 % (37.9-51.0); HEMOGLOBIN 8.2 g/dL (13.5-17.0); MEAN CORPUSCULAR HEMOGLOBIN 29.5 pg (27.0-33.4); MEAN CORPUSCULAR HGB CONC 34.1 g/dL (32.0-36.0); MEAN CORPUSCULAR VOLUME 87 fl (80-97); MONOCYTES % (AUTO) 6.8 % (3-13); PLATELET COUNT 291 10^3/uL (150-450); RED BLOOD COUNT 2.76 10^6/uL (4.35-5.55); RED CELL DISTRIBUTION WIDTH 14.7 % (11.5-14.0); SEGMENTED NEUTROPHILS % (AUTO) 78.9 % (42-78); TOTAL CELLS COUNTED % (AUTO) 100 %; WHITE BLOOD COUNT 12.6 10^3/uL (4.0-10.5)
[2018-08-31 04:37] LABS: INTERNATIONAL RATION (INR) 0.94; PARTIAL THROMBOPLASTIN TIME 24.5 SEC (23.5-35.8); PROTHROMBIN TIME 13.1 SEC (11.4-15.4)
[2018-08-31 04:39] LABS: ALANINE AMINOTRANSFERASE 25 U/L (21-72); ALBUMIN 3.1 g/dL (3.5-5.0); ALKALINE PHOSPHATASE 87 U/L (38-126); ANION GAP 11 (5-19); ASPARTATE AMINO TRANSFERASE 14 U/L (17-59); BILIRUBIN,DIRECT 0.1 mg/dL (0.0-0.4); BILIRUBIN,TOTAL 0.3 mg/dL (0.2-1.3); BLOOD UREA NITROGEN 21 mg/dL (7-20); CALCIUM 8.9 mg/dL (8.4-10.2); CARBON DIOXIDE 21 mmol/L (22-30); CHLORIDE 109 mmol/L (98-107); GLUCOSE 120 mg/dL (75-110); POTASSIUM 3.8 mmol/L (3.6-5.0); TOTAL PROTEIN 5.6 g/dL (6.3-8.2)
[2018-08-31] MEDS ORDERED: NORMAL SALINE 250 ML IV PRN ×2 (04:53)
[2018-08-31] MEDS ORDERED: ACETAMINOPHEN 325 MG TABLET PO PRN (05:27)
[2018-08-31] MEDS ORDERED: ONDANSETRON HCL INJ/PF 4 MG/2 ML SDV IV PRN (05:27)
[2018-08-31] MEDS ORDERED: IPRATROPIUM/ALBUTEROL 0.5-2.5 MG/3 ML AMPUL NEB PRN (05:27)
[2018-08-31] MEDS ORDERED: NORMAL SALINE 1000 ML 1,000 ML IV ONE (05:32)
[2018-08-31] MEDS ORDERED: DIPHENHYDRAMINE HCL 50 MG/ML VIAL ONE ×3 (05:53→17:43)
[2018-08-31] MEDS ORDERED: ONDANSETRON HCL INJ/PF 4 MG/2 ML SDV ONE ×3 (05:53→17:43)
[2018-08-31] MEDS ORDERED: GLUCAGON,HUMAN RECOMB 1 MG INJ ONE ×2 (05:54→17:44)
[2018-08-31] MEDS ORDERED: FLUMAZENIL INJ 0.5 MG/5 ML VIAL ONE ×2 (05:54→17:44)
[2018-08-31] MEDS ORDERED: NALOXONE HCL INJ/PF 0.4 MG/1 ML SDV ONE ×2 (05:54→17:44)
[2018-08-31] MEDS ORDERED: EPINEPHRINE INJ 1 MG/10 ML DISP.SYRIN ONE ×2 (05:54→17:44)
[2018-08-31] MEDS: MIDAZOLAM 2 MG/2 ML INJ ONE ×3 (06:34→18:10)
[2018-08-31] MEDS: FENTANYL CITRATE INJ/PF 100 MCG/2 ML AMPUL ONE ×3 (06:36→18:12)
--- NOTE | 2018-08-31 08:02 | PDOC H&P ---
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 CVA without residual deficits, coronary artery disease, hypertension and dyslipidemia. Patient presents 5 days after colonoscopy for tumor biopsy and polypectomy with 6 hours of bright red blood per rectum x7. In the emergency room he is found to have a significant drop in his hemoglobin from 12.5-8.2. No history of coagulopathy, Plavix not yet resumed post endoscopy. He is ordered 2 units of packed red blood cells and GI consult then referred to the hospitalist for admission. Patient denies chest pain shortness of breath nausea or vomiting. Past Medical History Cardiac Medical History: Reports: Coronary Artery Disease, Hypertension Neurological Medical History: Denies: Seizures Malignancy Medical History: Reports: Bone Cancer, Lung Cancer, Other - Prostate cancer with metastases GI Medical History: Reports: Gastroesophageal Reflux Disease Denies: Hepatitis, Hiatal Hernia, Peptic Ulcer Disease, Ulcerative Colitis Past Surgical History Past Surgical History: Reports: Other - Colonoscopy August 26, 2018 Social History Information Source: Patient, Emergency Med Personnel, [facility] Records Lives with: Family Smoking Status: Never Smoker Frequency of Alcohol Use: None Drugs: None - Advance Directive Resuscitation Status: Full Code Family History Family History: Hypertension Parental Family History Reviewed: Yes Children Family History Reviewed: Yes Sibling(s) Family History Reviewed.: Yes Medication/Allergy Allergies/Adverse Reactions: Sulfa (Sulfonamide Antibiotics) Allergy (Verified 12/07/17 18:58) Review of Systems Constitutional: ABSENT: chills, fever(s), headache(s), weight gain, weight loss Eyes: ABSENT: visual disturbances Ears: ABSENT: hearing changes Cardiovascular: ABSENT: chest pain, dyspnea on exertion, edema, orthropnea, palpitations Respiratory: ABSENT: cough, hemoptysis Gastrointestinal: ABSENT: abdominal pain, constipation, diarrhea, hematemesis, hematochezia, nausea, vomiting Genitourinary: ABSENT: dysuria, hematuria Musculoskeletal: ABSENT: joint swelling Integumentary: ABSENT: rash, wounds Neurological: ABSENT: abnormal gait, abnormal speech, confusion, dizziness, focal weakness, syncope Psychiatric: ABSENT: anxiety, depression, homidical ideation, suicidal ideation Endocrine: ABSENT: cold intolerance, heat intolerance, polydipsia, polyuria Hematologic/Lymphatic: ABSENT: easy bleeding, easy bruising Physical Exam Vital Signs: Temp Pulse Resp BP Pulse Ox 98.5 F 73 14 125/64 98 08/31/18 06:05 08/31/18 07:35 08/31/18 07:35 08/31/18 07:35 08/31/18 07:35 Intake & Output 08/29/18 08/30/18 08/31/18 11:59 11:59 11:59 Intake Total 0 Balance 0 Weight 100 kg General appearance: PRESENT: cooperative, mild distress. ABSENT: disheveled Head exam: PRESENT: atraumatic, normocephalic Eye exam: PRESENT: conjunctiva pale, EOMI, PERRLA. ABSENT: conjunctival injection, conjunctiva pink Ear exam: PRESENT: normal external ear exam Mouth exam: PRESENT: moist, tongue midline Neck exam: ABSENT: carotid bruit, JVD, lymphadenopathy, thyromegaly Respiratory exam: PRESENT: clear to auscultation magan. ABSENT: rales, rhonchi, wheezes Cardiovascular exam: PRESENT: RRR. ABSENT: diastolic murmur, rubs, systolic murmur Pulses: PRESENT: normal dorsalis pedis pul Vascular exam: PRESENT: normal capillary refill GI/Abdominal exam: PRESENT: normal bowel sounds, soft. ABSENT: distended, guarding, mass, organolmegaly, rebound, tenderness Rectal exam: PRESENT: bloody stool, heme (+) stool. ABSENT: decreased rectal tone, fecal impaction Extremities exam: PRESENT: full ROM, +1 edema. ABSENT: calf tenderness, clubbing, pedal edema Neurological exam: PRESENT: alert, awake, oriented to person, oriented to place , oriented to time, oriented to situation, CN II-XII grossly intact. ABSENT: motor sensory deficit Psychiatric exam: PRESENT: appropriate affect, normal mood. ABSENT: homicidal ideation, suicidal ideation Skin exam: PRESENT: dry, intact, warm. ABSENT: cyanosis, rash Assessment & Plan - Diagnosis (1) Rectal bleeding Is this a current diagnosis for this admission?: Yes Plan: Complicated by recent polypectomy and tumor biopsy, GI consult for emergent endoscopy. Transfuse 2 units of packed red blood cells. Evaluate PT/INR, follow-up CBC every 6 hours (2) Acute blood loss anemia Is this a current diagnosis for this admission?: Yes Plan: Secondary to #1, follow-up CBC (3) Prostate cancer Is this a current diagnosis for this admission?: Yes Plan: Supportive care - Time Time Spent: 50 to 70 Minutes
--- NOTE | 2018-08-31 09:00 | OPERATIVE REPORT E ---
Operative Report NAME: VIOLETTE IRIZARRY : 1945 AGE: 73Y DATE OF SURGERY: 08/31/2018 ROOM: [facility] PREOPERATIVE DIAGNOSIS: Rectal bleeding. POSTOPERATIVE DIAGNOSES: 1. Nonbleeding polypectomy ulcers. 2. Limited view of the colon. OPERATION: Colonoscopy. SURGEON: KEVIN BUSTILLO M.D. ANESTHESIA: Versed 4 mg and Fentanyl 100 mcg IV push. TISSUE REMOVED: None. PROCEDURE: After informed consent was obtained from the patient, conscious sedation was achieved. The colonoscope was inserted into the rectum and advanced to the cecum. There was a moderate amount of stool all over the colon, more so in the cecum which limited my view. I could not clean the cecum for proper evaluation. There was no evidence of active bleeding anywhere in the colon, though he did have some altered blood mostly in the left colon. The stool noted in the cecum was brownish green. Detailed examination of the colon revealed two 5 to 6 mm polypectomy ulcers with no evidence for active bleeding. Again, view was limited. In the rectum was noted hemorrhoids. He did tolerate the procedure well. PLAN: I will repeat his colonoscopy later in the day after bowel prep. We will continue to monitor his H and H. DICTATING PHYSICIAN: KEVIN BUSTILLO M.D. [id number] [facility]#: [id number] ID: [id number] JOB#: [id number] ACCT: [id number] cc:KEVIN BUSTILLO M.D. >
[2018-08-31] MEDS ORDERED: PEG 3350/NA SULF,BICARB,CL/KCL 4000 ML PO ONE (10:00)
--- NOTE | 2018-08-31 10:11 | CONSULTATION REPORT E ---
Consultation Report NAME: VIOLETTE IRIZARRY : 1945 AGE: 73Y DATE: 08/31/2018 610 A TO: KEVIN BUSTILLO M.D. FROM: VIOLETTE CANCHOLA M.D. Requesting Physician HISTORY OF PRESENT ILLNESS: Patient presented to the Emergency Room with acute rectal bleeding. He woke up about midnight with diarrhea and there was blood. He had about6 or 7 episodes at home prior to coming to the Emergency Room. On admission, his systolic blood pressure was 90 and his heart rate was in the 80s. He denies abdominal pain, nausea, or vomiting. He had a colonoscopy on 08/26/2018 that showed polyps in the cecum, ascending colon, and the sigmoid colon. He also had a rectal sigmoid ulcerated lesion and the biopsy is pending. He was on Plavix which was discontinued prior to the colonoscopy and he has yet to resume the Plavix. His hemoglobin was 8 on admission while it was 12 in November of this year. He will be receiving blood transfusion. PAST MEDICAL HISTORY: 1. Hypertension. 2. Sleep apnea. 3. Hypercholesterolemia. 4. Bone cancer. 5. Coronary artery disease. PAST SURGICAL HISTORY: 1. Recent colonoscopy. 2. Appendectomy. 3. Prostate surgery. ALLERGIES: SULFA. SOCIAL HISTORY: Noncontributory. REVIEW OF SYSTEMS: Other than the above, this is noncontributory. PHYSICAL EXAMINATION: GENERAL: Shows a patient in no distress. He is obese. VITAL SIGNS: He has heart rate of 75, blood pressure is 137/70. HEENT: There is pallor but no jaundice. Oropharynx normal. NECK: No bruit. No JVD. CHEST: No deformity. LUNGS: Clear. HEART: Heart sounds 1 and 2 normal without murmurs. ABDOMEN: Soft and obese with no tenderness. Liver and spleen are palpable. Bowel sounds active. NEUROLOGIC: Grossly nonfocal. DIAGNOSTICS: Laboratory tests showed a white count of 12 with a platelet count of 291. INR was 0.94. Lipase is normal. BUN of 21 with creatinine of 1.01. ASSESSMENT AND PLAN: Rectal bleeding. Patient is likely bleeding from his polypectomy ulcers. The need for origin colonoscopy was explained to the patient and his and they are in agreement. This will be performed without preparation. I will follow him with you. DICTATING PHYSICIAN: KEVIN BUSTILLO M.D. [id number] PHY#: [id number] ID: [id number] JOB#: [id number] ACCT: [id number] cc:KEVIN BUSTILLO M.D. >
[2018-08-31 10:55] LABS: ABSOLUTE BASOPHILS # (AUTO) 0.1 10^3/uL (0.0-0.2); ABSOLUTE EOSINOPHILS # (AUTO) 0.1 10^3/uL (0.0-0.6); ABSOLUTE LYMPHOCYTES (AUTO) 2.1 10^3/uL (0.5-4.7); ABSOLUTE MONOCYTES (AUTO) 1.2 10^3/uL (0.1-1.4); ABSOLUTE NEUT (AUTO) 11.6 10^3/uL (1.7-8.2); BASOPHILS % (AUTO) 0.8 % (0-2); EOSINOPHILS % (AUTO) 0.5 % (0-6); HEMATOCRIT 28.9 % (37.9-51.0); HEMOGLOBIN 9.9 g/dL (13.5-17.0); LYMPHOCYTES % (AUTO) 13.9 % (13-45); MEAN CORPUSCULAR HEMOGLOBIN 29.9 pg (27.0-33.4); MEAN CORPUSCULAR HGB CONC 34.3 g/dL (32.0-36.0); MEAN CORPUSCULAR VOLUME 87 fl (80-97); PLATELET COUNT 268 10^3/uL (150-450); RED BLOOD COUNT 3.32 10^6/uL (4.35-5.55); RED CELL DISTRIBUTION WIDTH 14.7 % (11.5-14.0); SEGMENTED NEUTROPHILS % (AUTO) 76.8 % (42-78); TOTAL CELLS COUNTED % (AUTO) 100 %; WHITE BLOOD COUNT 15.1 10^3/uL (4.0-10.5)
--- NOTE | 2018-08-31 11:36 | PDOC PROGRESS REPORT ---
Subjective Progress Note for:: 08/31/18 Subjective:: VIOLETTE HAINES is a 73 year old male who presents 5 days after colonoscopy for tumor biopsy and polypectomy with a 6 hour history of bright red blood per rectum with 7 separate large explosions prior to coming to the emergency room. Violette has a past medical history of metastatic prostate cancer (pulmonary and osseous), CVA without residual deficits, coronary artery disease, hypertension and dyslipidemia. In the emergency room he was found to have a significant drop in his hemoglobin from 12.5-8.2. A 2 unit packed red blood cells transfusion and GI consult were ordered and then Mr. Haines was referred to the hospitalist for admission. He was taken to the gastroenterology suite where he underwent a colonoscopy prior to his arrival in the ICU. He has remained stable throughout his post operative course and no identified source of continued bleeding was noted. He states he is feeling pretty well and is hopeful that he does not have any further bleeding. He understands that he will be having another colonoscopy later today after he is completed drinking a prescribed amount of GoLYTELY per Dr. Streeter's orders. He will be transferred to the [facility] for further care. Reason For Visit: LOWER GI BLEED, ANEMIA Physical Exam Vital Signs: Temp Pulse Resp BP Pulse Ox 98.0 F 65 15 180/95 H 100 08/31/18 08:31 08/31/18 08:31 08/31/18 10:00 08/31/18 09:59 08/31/18 10:00 Intake & Output 08/29/18 08/30/18 08/31/18 23:59 23:59 23:59 Intake Total 50 Balance 50 Weight 93.3 kg General appearance: PRESENT: no acute distress Head exam: PRESENT: atraumatic, normocephalic Respiratory exam: PRESENT: clear to auscultation magan, symmetrical, unlabored Cardiovascular exam: PRESENT: RRR. ABSENT: clicks, gallop, rubs GI/Abdominal exam: PRESENT: distended - Mildly, normal bowel sounds, soft Rectal exam: PRESENT: deferred Neurological exam: PRESENT: alert, oriented to person, oriented to place, oriented to time, oriented to situation Psychiatric exam: PRESENT: appropriate affect, normal mood Skin exam: PRESENT: jaundice, rash, urticaria Results Laboratory Results: 08/31/18 10:42 08/31/18 10:42 WBC 15.1 H RBC 3.32 L Hgb 9.9 L Hct 28.9 L MCV 87 MCH 29.9 MCHC 34.3 RDW 14.7 H Plt Count 268 Seg Neutrophils % 76.8 Lymphocytes % 13.9 Monocytes % 8.0 Eosinophils % 0.5 Basophils % 0.8 Absolute Neutrophils 11.6 H Absolute Lymphocytes 2.1 Absolute Monocytes 1.2 Absolute Eosinophils 0.1 Absolute Basophils 0.1 Assessment & Plan - Diagnosis (1) Acute blood loss anemia Is this a current diagnosis for this admission?: Yes Plan: Patient will receive the remainder of his 2 unit packed red blood cell transfusion and his hemoglobin will be followed posttransfusion and daily during his hospital course. (2) Rectal bleeding Is this a current diagnosis for this admission?: Yes Plan: Patient has been evaluated by Dr. Streeter and his initial colonoscopy showed no active bleeding. Dr. Streeter plans to repeat the colonoscopy later today after a bowel preparation has been performed. Patient's hemoglobin will be monitored on a regular basis. - Time Time Spent with patient: 25-34 minutes Anticipated discharge: Home
[2018-08-31] MEDS: HYDRALAZINE HCL INJ/PF 20 MG/1 ML SDV IV PRN (15:52)
[2018-08-31] MEDS ORDERED: MAGNESIUM CITRATE 296 ML BOTTLE PO ONE (16:30)
[2018-08-31 16:52] LABS: ABSOLUTE BASOPHILS # (AUTO) 0.2 10^3/uL (0.0-0.2); ABSOLUTE EOSINOPHILS # (AUTO) 0.2 10^3/uL (0.0-0.6); ABSOLUTE LYMPHOCYTES (AUTO) 3.4 10^3/uL (0.5-4.7); ABSOLUTE MONOCYTES (AUTO) 1.6 10^3/uL (0.1-1.4); ABSOLUTE NEUT (AUTO) 11.9 10^3/uL (1.7-8.2); BASOPHILS % (AUTO) 1.1 % (0-2); EOSINOPHILS % (AUTO) 1.3 % (0-6); HEMATOCRIT 34.6 % (37.9-51.0); HEMOGLOBIN 11.6 g/dL (13.5-17.0); LYMPHOCYTES % (AUTO) 19.8 % (13-45); MEAN CORPUSCULAR HEMOGLOBIN 28.6 pg (27.0-33.4); MEAN CORPUSCULAR HGB CONC 33.6 g/dL (32.0-36.0); MEAN CORPUSCULAR VOLUME 85 fl (80-97); PLATELET COUNT 286 10^3/uL (150-450); RED BLOOD COUNT 4.06 10^6/uL (4.35-5.55); RED CELL DISTRIBUTION WIDTH 14.8 % (11.5-14.0); SEGMENTED NEUTROPHILS % (AUTO) 68.8 % (42-78); TOTAL CELLS COUNTED % (AUTO) 100 %; WHITE BLOOD COUNT 17.3 10^3/uL (4.0-10.5)
[2018-08-31] MEDS ORDERED: FENTANYL CITRATE INJ/PF 100 MCG/2 ML AMPUL ONE (17:43)
[2018-08-31] MEDS ORDERED: MIDAZOLAM 2 MG/2 ML INJ ONE (17:44)
[2018-08-31] MEDS ORDERED: WATER IV SCH (18:00)
[2018-08-31] MEDS ORDERED: PENICILLIN G-K 5 MILLION UNIT VIAL IV SCH (18:00)
[2018-08-31] MEDS ORDERED: PENICILLIN POTASSIUM IV SCH (18:00)
[2018-08-31] MEDS ORDERED: DEXTROSE 5% IV SCH (18:00)
[2018-08-31] MEDS ORDERED: LIDOCAINE 2% JELLY 30 ML TUBE ONE (18:02)
--- NOTE | 2018-08-31 18:42 | Operative Report ---
Operative Report DATE OF SURGERY: 08/31/18 Operative Report: Pre-op diagnosis: History of post polypectomy bleeding. Incomplete colonoscopy earlier today Post-op diagnosis: 1. Cecal ulcer with evidence for recent bleeding 2. Anorectal ulceration Surgery: Colonoscopy Endo Clip placement Medications: Versed 3mg, Fentanyl 100mcg IV push Tissue removed: None Procedure: After informed consent obtained from patient, conscious sedation was achieved. A digital rectal examination was performed and this was unremarkable. The colonoscope was inserted into the rectum and advanced to the cecum. The appendiceal orifice and the terminal ileum were both identified. The mucosa was examined into details as the colonoscope was slowly pulled out of the patient. The endoscope was retroflexed in the rectum. Patient tolerated the procedure well. Findings Cecum: 1 cm ulcer with 2 small red spots. 3 endoclips were applied. No other lesion of concern was identified in the colon. There was brown stools all over. Ascending colon: Normal Transverse colon: Normal Descending colon: Normal Sigmoid colon: Normal Rectum: Normal except for internal hemorrhoids and ulceration involving the dentate line. This was biopsied last week and the pathology is pending Plan: Patient can be discharged tomorrow morning from GI standpoint. He should hold Plavix for another 5 days OPERATION: .
[2018-08-31] MEDS: NORMAL SALINE IV SCH ×2 (19:09→23:46)
[2018-08-31] MEDS: PENICILLIN POTASSIUM IV SCH ×2 (19:09→23:46)
[2018-08-31 23:32] LABS: ABSOLUTE EOSINOPHILS # (AUTO) 0.1 10^3/uL (0.0-0.6); ABSOLUTE LYMPHOCYTES (AUTO) 2.2 10^3/uL (0.5-4.7); ABSOLUTE NEUT (AUTO) 7.9 10^3/uL (1.7-8.2); BASOPHILS % (AUTO) 0.4 % (0-2); EOSINOPHILS % (AUTO) 1.1 % (0-6); HEMOGLOBIN 9.9 g/dL (13.5-17.0); LYMPHOCYTES % (AUTO) 19.8 % (13-45); MEAN CORPUSCULAR HEMOGLOBIN 29.5 pg (27.0-33.4); MEAN CORPUSCULAR HGB CONC 35.2 g/dL (32.0-36.0); MEAN CORPUSCULAR VOLUME 84 fl (80-97); MONOCYTES % (AUTO) 8.6 % (3-13); PLATELET COUNT 242 10^3/uL (150-450); RED BLOOD COUNT 3.34 10^6/uL (4.35-5.55); RED CELL DISTRIBUTION WIDTH 14.9 % (11.5-14.0); SEGMENTED NEUTROPHILS % (AUTO) 70.1 % (42-78); TOTAL CELLS COUNTED % (AUTO) 100 %; WHITE BLOOD COUNT 11.3 10^3/uL (4.0-10.5)
[2018-09-01] MEDS: PENICILLIN POTASSIUM IV SCH (05:57)
[2018-09-01] MEDS: NORMAL SALINE IV SCH (05:57)
[2018-09-01 06:56] LABS: ABSOLUTE BASOPHILS # (AUTO) 0.1 10^3/uL (0.0-0.2); ABSOLUTE EOSINOPHILS # (AUTO) 0.3 10^3/uL (0.0-0.6); ABSOLUTE LYMPHOCYTES (AUTO) 2.1 10^3/uL (0.5-4.7); ABSOLUTE MONOCYTES (AUTO) 0.8 10^3/uL (0.1-1.4); ABSOLUTE NEUT (AUTO) 5.9 10^3/uL (1.7-8.2); BASOPHILS % (AUTO) 0.7 % (0-2); EOSINOPHILS % (AUTO) 2.8 % (0-6); HEMATOCRIT 27.4 % (37.9-51.0); HEMOGLOBIN 9.9 g/dL (13.5-17.0); LYMPHOCYTES % (AUTO) 22.7 % (13-45); MEAN CORPUSCULAR HEMOGLOBIN 30.4 pg (27.0-33.4); MEAN CORPUSCULAR VOLUME 84 fl (80-97); MONOCYTES % (AUTO) 8.4 % (3-13); PLATELET COUNT 253 10^3/uL (150-450); RED BLOOD COUNT 3.25 10^6/uL (4.35-5.55); SEGMENTED NEUTROPHILS % (AUTO) 65.4 % (42-78); TOTAL CELLS COUNTED % (AUTO) 100 %; WHITE BLOOD COUNT 9.1 10^3/uL (4.0-10.5)
[2018-09-01 07:16] LABS: ANION GAP 6 (5-19); BLOOD UREA NITROGEN 12 mg/dL (7-20); CALCIUM 8.6 mg/dL (8.4-10.2); CARBON DIOXIDE 26 mmol/L (22-30); CHLORIDE 108 mmol/L (98-107); GLUCOSE 112 mg/dL (75-110); POTASSIUM 3.5 mmol/L (3.6-5.0); SODIUM 140.3 mmol/L (137-145)
[2018-09-01] MEDS: HYDRALAZINE HCL INJ/PF 20 MG/1 ML SDV IV PRN ×2 (08:48→11:49)
[2018-09-01] MEDS ORDERED: SERTRALINE HCL 50 MG TABLET PO SCH (10:00)
[2018-09-01] MEDS ORDERED: ATORVASTATIN CALCIUM 80 MG TABLET PO SCH (10:00)
[2018-09-01] MEDS ORDERED: SPIRONOLACTONE 25 MG TABLET PO SCH (10:00)
[2018-09-01] MEDS ORDERED: CLOPIDOGREL BISULFATE 75 MG TABLET PO SCH (10:00)
[2018-09-01] MEDS ORDERED: LOSARTAN POTASSIUM 50 MG TABLET PO SCH (10:00)
[2018-09-01] MEDS ORDERED: AMLODIPINE BESYLATE 5 MG TABLET PO SCH (10:00)
[2018-09-01] MEDS ORDERED: (PENDING PHARMACY ID) (Losartan/Hydrochlorothiazide [Hyzaar 100-12.5 Tablet] 1 TAB) PO SCH (10:00)
[2018-09-01] MEDS ORDERED: HYDROCHLOROTHIAZIDE 12.5 MG TABLET PO SCH (10:00)
[2018-09-01 13:04] VITALS: BP 134/87
--- NOTE | 2018-09-01 19:24 | PDOC DISCHARGE SUMMARY ---
General - Admit/Disc Date/PCP Admission Date/Primary Care Provider: 08/31/18 05:40 MARCIA ANDREW PA-C Discharge Date: 09/01/18 - Discharge Diagnosis (1) Acute blood loss anemia Is this a current diagnosis for this admission?: Yes Summary: Mr. Haines was noted to have a significant drop in his hemoglobin approximately 4 g at the time of his admission from a recently obtained hemoglobin level. He was given a 2 unit packed red blood cell transfusion and subsequently has had a stable hemoglobin. His anemia was investigated by Dr. Choi with 2 colonoscopies. He had an area of the cecum very suspicious for bleeding treated with application of hemostatic clips. He had no further rectal bleeding after the procedure. (2) Rectal bleeding Is this a current diagnosis for this admission?: Yes Summary: Mr. Haines presented with acute rectal bleeding and was evaluated by Dr. Choi with colonoscopy and treated as noted above. - Additional Information Resuscitation Status: Full Code Discharge Diet: As Tolerated Discharge Activity: Activity As Tolerated, Balance Activity w/Rest, Walk Frequently Home Medications: Amlodipine Besylate [Norvasc 5 mg Tablet] 5 mg PO DAILY 08/31/18 Atorvastatin Calcium [Lipitor 80 mg Tablet] 80 mg PO DAILY 08/31/18 Clonidine HCl [Catapres 0.1 mg Tablet] 0.1 mg PO DAILY 08/31/18 Clopidogrel Bisulfate [Plavix 75 mg Tablet] 75 mg PO DAILY 08/31/18 Losartan/Hydrochlorothiazide [Hyzaar 100-12.5 Tablet] 1 tab PO DAILY 08/31/18 Sertraline HCl [Zoloft 50 mg Tablet] 50 mg PO DAILY 08/31/18 Spironolactone [Aldactone 25 mg Tablet] 12.5 mg PO DAILY 08/31/18 History of Present Illness Patient complains of: Rectal bleeding History of Present Illness: JOMAR HAINES is a 73 year old male who presents 5 days after colonoscopy for tumor biopsy and polypectomy with a 6 hour history of bright red blood per rectum with 7 separate large explosions prior to coming to the emergency room. Jomar has a past medical history of metastatic prostate cancer (pulmonary and osseous), CVA without residual deficits, coronary artery disease, hypertension and dyslipidemia. In the emergency room he was found to have a significant drop in his hemoglobin from 12.5-8.2. A 2 unit packed red blood cells transfusion and GI consult were ordered and then Mr. Haines was referred to the hospitalist for admission. He was taken to the gastroenterology suite where he underwent a colonoscopy prior to his arrival in the ICU. He has remained stable throughout his post operative course and no identified source of continued bleeding was noted. He states he is feeling pretty well and is hopeful that he does not have any further bleeding. He understands that he will be having another colonoscopy later today after he is completed drinking a prescribed amount of GoLYTELY per Dr. Streeter's orders. He will be transferred to the [facility] for further care. Hospital Course Hospital Course: After his initial evaluation in the emergency room and his initial colonoscopy he was subsequently taken back to the gastroenterology suite where another colonoscopy was performed and hemostatic clips were applied to a suspicious area of the cecum as identified by Dr. Choi. Jomar's hemoglobin remained stable for the next several hours and he had no further rectal bleeding. Because he was significantly improved and in very stable condition it was felt that he was ready for discharge to home on 09/01/2018. Physical Exam Vital Signs: Temp Pulse Resp BP Pulse Ox 97.8 F 70 16 134/87 H 98 09/01/18 11:39 09/01/18 11:39 09/01/18 11:39 09/01/18 11:39 09/01/18 11:39 Intake & Output 08/30/18 08/31/18 09/01/18 23:59 23:59 23:59 Intake Total 1325 50 Output Total 200 Balance 1125 50 Weight 93.3 kg 103.1 kg General appearance: PRESENT: no acute distress, cooperative, obese Head exam: PRESENT: atraumatic, normocephalic Respiratory exam: PRESENT: clear to auscultation magan, symmetrical, unlabored Cardiovascular exam: PRESENT: RRR. ABSENT: clicks, gallop, rubs Vascular exam: PRESENT: normal capillary refill. ABSENT: pallor GI/Abdominal exam: PRESENT: normal bowel sounds, soft Rectal exam: PRESENT: deferred Neurological exam: PRESENT: alert, oriented to person, oriented to place, oriented to time, oriented to situation Psychiatric exam: PRESENT: appropriate affect, normal mood Skin exam: ABSENT: jaundice, rash, urticaria Results Laboratory Results: 09/01/18 06:33 09/01/18 06:33 10/09/01/18 09/01/18 23:23 06:33 06:33 WBC 11.3 H 9.1 RBC 3.34 L 3.25 L Hgb 9.9 L 9.9 L Hct 28.0 L 27.4 L MCV 84 84 MCH 29.5 30.4 MCHC 35.2 36.0 RDW 14.9 H 15.0 H Plt Count 242 253 Seg Neutrophils % 70.1 65.4 Lymphocytes % 19.8 22.7 Monocytes % 8.6 8.4 Eosinophils % 1.1 2.8 Basophils % 0.4 0.7 Absolute Neutrophils 7.9 5.9 Absolute Lymphocytes 2.2 2.1 Absolute Monocytes 1.0 0.8 Absolute Eosinophils 0.1 0.3 Absolute Basophils 0.0 0.1 Sodium 140.3 Potassium 3.5 L Chloride 108 H Carbon Dioxide 26 Anion Gap 6 BUN 12 Creatinine 0.85 Est GFR ( Amer) > 60 Est GFR (Non-Af Amer) > 60 Glucose 112 H Calcium 8.6 Qualifiers - * PATIENT BEING DISCHARGED WITH ANY OF THE FOLLOWING DIAGNOSIS: No Plan Discharge Plan: Discharged home in improved and stable condition. Follow-up with Dr. Choi as arranged. Time Spent: Greater than 30 Minutes
== END 2018-09-01 13:45 | disposition home or self-care (01) | DRG 812 ==
LOC: ER 03:47 → EH 05:40 → ICU 07:55 → 3S 15:09
PROVIDERS: ADMIT Internal Medicine; ATTEND Internal Medicine
PROC: 0DJD8ZZ Inspection of Lower Intestinal Tract, Via Natural or Artificial Opening Endoscopic (ICD-10-PCS; 2018-08-31)
PROC: 0W3P8ZZ Control Bleeding in Gastrointestinal Tract, Via Natural or Artificial Opening Endoscopic (ICD-10-PCS; 2018-08-31)
PROC: 30233N1 Transfusion of Nonautologous Red Blood Cells into Peripheral Vein, Percutaneous Approach (ICD-10-PCS; principal; 2018-08-31 06:00)
DX: D62 Acute posthemorrhagic anemia (principal); K63.3 Ulcer of intestine; K92.1 Melena; C79.51 Secondary malignant neoplasm of bone; C78.00 Secondary malignant neoplasm of unspecified lung; C61 Malignant neoplasm of prostate; I25.10 Atherosclerotic heart disease of native coronary artery without angina pectoris; I10 Essential (primary) hypertension; E78.5 Hyperlipidemia, unspecified; Z86.73 Personal history of transient ischemic attack (TIA), and cerebral infarction without residual deficits
CPT/HCPCS: 36415; 36430; 45378; 45382; 80048; 80053; 82272; 85025; 85610; 85730; 86850; 86900; 86901; 86920; 99285; J0171; J0360; J1200; J1610; J2250; J2310; J2405; J2540; J3010; J3490; J7050; P9016

== ENCOUNTER 2018-10-09 16:14 | Emergency (ER) | payer MEDICARE ==
--- NOTE | 2018-10-09 16:28 | ER Document Report ---
ED General - General Stated Complaint: ALTERED MENTAL STATUS Time Seen by Provider: 10/09/18 16:27 Notes: Patient is a 73-year-old male with history of TIA that presents to the emergency department for chief complaint of altered mental status. 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 He was slow to answer questions, according to the patient's daughter who is present at bedside, he has improved since his initial onset of symptoms, which is approximately 30 minutes prior to ED arrival. At this time the patient denies any complaints, denies any headache , lightheadedness, chest pain, shortness of breath, difficulty breathing, numbness, tingling or weakness in any extremity, facial droop, or difficulty or change in his speech. Past Medical History: Hypertension, TIAs, depression Past Surgical History: Denies pertinent surgical history Social History: Denies current tobacco, alcohol or illicit drug use. Family History: Reviewed and noncontributory for presenting illness Allergies: Reviewed, see documented allergy list. REVIEW OF SYSTEMS: Other than noted above, the 12 point review of systems was reviewed with the patient and were negative, all pertinent findings are included in the HPI. PHYSICAL EXAMINATION: Vital signs reviewed, nursing noted reviewed. GENERAL: Well-appearing, well-nourished and in no acute distress. HEAD: Atraumatic, normocephalic. EYES: Eyes appear normal, extraocular movements intact, sclera anicteric, conjunctiva are normal. ENT: nares patent, oropharynx clear without exudates. Moist mucous membranes. NECK: Normal range of motion, supple without lymphadenopathy LUNGS: Breath sounds clear to auscultation bilaterally and equal. No wheezes rales or rhonchi. HEART: Regular rate and rhythm without murmurs ABDOMEN: Soft, nontender, normoactive bowel sounds. No rebound, guarding, or rigidity. No masses appreciated. EXTREMITIES: Nontender, good range of motion, no pitting or edema. NEUROLOGICAL: Alert and oriented x4, however patient was slow to answer question regarding the month and year, no appreciable aphasia, dysarthria, or other focal neurological deficits, NIH stroke scale score: 0, moves all extremities spontaneously Motor and sensory grossly intact on exam. PSYCH: Normal mood, normal affect. SKIN: Warm, Dry, normal turgor, no rashes or lesions noted on exposed skin TRAVEL OUTSIDE OF THE [place] IN LAST 30 DAYS: No - Related Data Allergies/Adverse Reactions: Sulfa (Sulfonamide Antibiotics) Allergy (Verified 12/07/17 18:58) Past Medical History - Social History Smoking Status: Never Smoker Family History: Reviewed & Not Pertinent, Hypertension - Past Medical History Cardiac Medical History: Reports: Hx Coronary Artery Disease, Hx Hypertension Neurological Medical History: Denies: Hx Seizures Renal/ Medical History: Denies: Hx Peritoneal Dialysis Malignancy Medical History: Reports Hx Bone Cancer, Reports Hx Lung Cancer GI Medical History: Reports: Hx Gastroesophageal Reflux Disease. Denies: Hx Hepatitis, Hx Hiatal Hernia, Hx Ulcerative Colitis Psychiatric Medical History: Reports: Hx Depression Infectious Medical History: Denies: Hx Hepatitis Past Surgical History: Reports: Other - Colonoscopy August 26, 2018 Physical Exam - Vital signs Vitals: Resp Pulse Ox 13 95 10/09/18 16:31 10/09/18 16:31 Course - Re-evaluation Re-evalutation: Patient seen and examined vital signs reviewed. Laboratory data and imaging were ordered as appropriate for the patient's presenting symptoms and complaint, with consideration of any critical or life threatening conditions that may be associated with their obtained history and exam as noted above. Results were reviewed when available and demonstrated negative CT imaging of the head, blood work was unremarkable, and initial workup The patient was re-evaluated and was improved, he is answering questions more appropriately and quicker, again no focal neurological deficit on reevaluation, NIH stroke scale score remains 0. I did recommend that the patient be observed in the hospital, for a TIA, given that he has history, he is currently on Plavix and aspirin, and is high risk for this. The patient was alert and oriented upon this discussion of risks and benefits of being admitted to the hospital, versus leaving AGAINST MEDICAL ADVICE, the patient was insistent that he wanted to leave AGAINST MEDICAL ADVICE. Evaluation was most consistent with TIA After performing the patient's full evaluation, I spoke with the patient at length in regards to leaving the hospital against medical advice. I discussed evaluation for their presenting complaint and recommended further evaluation. I do not believe the patient should leave but the patient is alert oriented x4, understands the risks and benefits of staying and leaving including disability and . Pt understands that they can return at any time for further care and is more than welcome to do so. Pt verbalizes this understanding. *Note is created using voice recognition software and may contain spelling, syntax or grammatical errors. Laboratory 10/09/18 10/09/18 10/09/18 16:38 16:38 16:38 WBC 13.0 H RBC 4.46 Hgb 13.3 L Hct 38.4 MCV 86 MCH 29.9 MCHC 34.7 RDW 14.6 H Plt Count 336 Seg Neutrophils % 77.5 Lymphocytes % 12.1 L Monocytes % 9.1 Eosinophils % 0.7 Basophils % 0.6 Absolute Neutrophils 10.1 H Absolute Lymphocytes 1.6 Absolute Monocytes 1.2 Absolute Eosinophils 0.1 Absolute Basophils 0.1 Sodium 142.5 Potassium 4.0 Chloride 100 Carbon Dioxide 27 Anion Gap 16 BUN 18 Creatinine 1.14 Est GFR ( Amer) > 60 Est GFR (Non-Af Amer) > 60 Glucose 98 Lactic Acid 1.5 Calcium 10.2 Total Bilirubin 0.5 Direct Bilirubin 0.1 Neonat Total Bilirubin Not Reportable Neonat Direct Bilirubin Not Reportable Neonat Indirect Bili Not Reportable AST 15 L ALT 24 Alkaline Phosphatase 118 Total Protein 7.2 Albumin 4.4 Urine Color Urine Appearance Urine pH Ur Specific [place] Urine Protein Urine Glucose (UA) Urine Ketones Urine Blood Urine Nitrite Urine Bilirubin Urine Urobilinogen Ur Leukocyte Esterase Urine WBC (Auto) Urine RBC (Auto) U Hyaline Cast (Auto) Squamous Epi Cells Auto Urine Mucus (Auto) Urine Ascorbic Acid 10/09/18 17:40 WBC RBC Hgb Hct MCV MCH MCHC RDW Plt Count Seg Neutrophils % Lymphocytes % Monocytes % Eosinophils % Basophils % Absolute Neutrophils Absolute Lymphocytes Absolute Monocytes Absolute Eosinophils Absolute Basophils Sodium Potassium Chloride Carbon Dioxide Anion Gap BUN Creatinine Est GFR ( Amer) Est GFR (Non-Af Amer) Glucose Lactic Acid Calcium Total Bilirubin Direct Bilirubin Neonat Total Bilirubin Neonat Direct Bilirubin Neonat Indirect Bili AST ALT Alkaline Phosphatase Total Protein Albumin Urine Color YELLOW Urine Appearance SLIGHTLY-CLOUDY Urine pH 6.0 Ur Specific [place] 1.024 Urine Protein 30 H Urine Glucose (UA) NEGATIVE Urine Ketones NEGATIVE Urine Blood NEGATIVE Urine Nitrite NEGATIVE Urine Bilirubin NEGATIVE Urine Urobilinogen 2.0 H Ur Leukocyte Esterase NEGATIVE Urine WBC (Auto) 1 Urine RBC (Auto) 8 U Hyaline Cast (Auto) 14 Squamous Epi Cells Auto <1 Urine Mucus (Auto) MANY Urine Ascorbic Acid [address] 10/09/18 17:05 IMPRESSION: CHRONIC CHANGES OF ATROPHY AND MICROVASCULAR ISCHEMIA. REMOTE INFARCT AT THE LEFT FRONTAL LOBE. NO ACUTE INTRACRANIAL HEMORRHAGE OR ACUTE TERRITORIAL INFARCT. EVIDENCE OF ACUTE STROKE: NO. - Vital Signs Vital signs: Temp Pulse Resp BP Pulse Ox 14 176/113 H 94 10/09/18 20:33 10/09/18 20:33 10/09/18 20:33 - Laboratory Result Diagrams: 10/09/18 16:38 10/09/18 16:38 Laboratory results interpreted by me: 10/09/18 10/09/18 10/09/18 16:38 16:38 17:40 WBC 13.0 H Hgb 13.3 L RDW 14.6 H Lymphocytes % 12.1 L Absolute Neutrophils 10.1 H AST 15 L Urine Protein 30 H Urine Urobilinogen 2.0 H Urine Ascorbic Acid 40 H - EKG Interpretation by Me Additional EKG results interpreted by me: EKG demonstrates sinus rhythm with a ventricular rate of 74 bpm, left axis deviation, QTC 497 ms, there is a nonspecific T wave inversion in lead III, no ST changes. This is compared to prior EKG performed on ED arrival, the demonstrated an accelerated junctional escape rhythm, with a ventricular rate of 60 bpm, left axis deviation, and T wave inversions in leads I, 2, aVL. Discharge - Discharge Clinical Impression: TIA (transient ischemic attack) Condition: Stable Disposition: AGAINST MEDICAL ADVICE Instructions: Transient Ischemic Attack ([facility]) Additional Instructions: Please return to the emergency department if you have any worsening, or concern of your symptoms. Please return to the emergency department if you develop chest pain, difficulty breathing, severe abdominal pain, or ongoing vomiting. Please follow-up with your primary care physician in 2-3 days and any other recommended physicians. If prescribed, take all medications as directed. If you have any questions or concerns do not hesitate to return the emergency department for evaluation. Referrals: MARCIA ANDREW PA-C [Primary Care Provider] - Follow up tomorrow
[2018-10-09 17:00] LABS: ABSOLUTE BASOPHILS # (AUTO) 0.1 10^3/uL (0.0-0.2); ABSOLUTE EOSINOPHILS # (AUTO) 0.1 10^3/uL (0.0-0.6); ABSOLUTE LYMPHOCYTES (AUTO) 1.6 10^3/uL (0.5-4.7); ABSOLUTE MONOCYTES (AUTO) 1.2 10^3/uL (0.1-1.4); ABSOLUTE NEUT (AUTO) 10.1 10^3/uL (1.7-8.2); BASOPHILS % (AUTO) 0.6 % (0-2); EOSINOPHILS % (AUTO) 0.7 % (0-6); HEMATOCRIT 38.4 % (37.9-51.0); HEMOGLOBIN 13.3 g/dL (13.5-17.0); LYMPHOCYTES % (AUTO) 12.1 % (13-45); MEAN CORPUSCULAR HEMOGLOBIN 29.9 pg (27.0-33.4); MEAN CORPUSCULAR HGB CONC 34.7 g/dL (32.0-36.0); MEAN CORPUSCULAR VOLUME 86 fl (80-97); MONOCYTES % (AUTO) 9.1 % (3-13); PLATELET COUNT 336 10^3/uL (150-450); RED BLOOD COUNT 4.46 10^6/uL (4.35-5.55); RED CELL DISTRIBUTION WIDTH 14.6 % (11.5-14.0); SEGMENTED NEUTROPHILS % (AUTO) 77.5 % (42-78); TOTAL CELLS COUNTED % (AUTO) 100 %
[2018-10-09 17:23] LABS: ALANINE AMINOTRANSFERASE 24 U/L (21-72); ALBUMIN 4.4 g/dL (3.5-5.0); ALKALINE PHOSPHATASE 118 U/L (38-126); ANION GAP 16 (5-19); ASPARTATE AMINO TRANSFERASE 15 U/L (17-59); BILIRUBIN,DIRECT 0.1 mg/dL (0.0-0.4); BILIRUBIN,TOTAL 0.5 mg/dL (0.2-1.3); BLOOD UREA NITROGEN 18 mg/dL (7-20); CALCIUM 10.2 mg/dL (8.4-10.2); CARBON DIOXIDE 27 mmol/L (22-30); CHLORIDE 100 mmol/L (98-107); GLUCOSE 98 mg/dL (75-110); SODIUM 142.5 mmol/L (137-145); TOTAL PROTEIN 7.2 g/dL (6.3-8.2)
--- NOTE | 2018-10-09 18:23 | RADIOLOGY REPORT (SQ) ---
EXAM DESCRIPTION: CT HEAD WITHOUT COMPLETED DATE/TIME: 10/09/2018 5:51 pm REASON FOR STUDY: CONFUSION COMPARISON: None. TECHNIQUE: Axial images acquired through the brain without intravenous contrast. Images reviewed wi th bone, brain and subdural windows. Images stored on PACS. All CT scanners at this facility use dose modulation, iterative reconstruction, and/or weight based d osing when appropriate to reduce radiation dose to as low as reasonably achievable (ALARA). [facility]: Dose Right [facility]: CareDose [facility]: Dose Right [facility]: Teradose 4D [facility]: Smart DossierView RADIATION DOSE: CT Rad equipment meets quality standard of care and radiation dose reduction techniq ues were employed. CTDIvol: 48.7 mGy. DLP: 979 mGy-cm.mGy. LIMITATIONS: None. FINDINGS: VENTRICLES: Prominent. CEREBRUM: No mass effect. No hemorrhage. No midline shift. Areas of low density in the white matte r most likely due to chronic micro-vascular ischemic change. No evidence for acute territorial infar ction. Encephalomalacia at the left frontal lobe is probably due to remote infarct. CEREBELLUM: No hemorrhage. No alteration of density. No evidence for acute infarction. EXTRAAXIAL SPACES: Age-related involutional change. No fluid collections. ORBITS AND GLOBE: Symmetrical contour of the globes. CALVARIUM: No depressed fracture. PARANASAL SINUSES: No air-fluid level. SOFT TISSUES: No hematoma. IMPRESSION: CHRONIC CHANGES OF ATROPHY AND MICROVASCULAR ISCHEMIA. REMOTE INFARCT AT THE LEFT FRONT AL LOBE. NO ACUTE INTRACRANIAL HEMORRHAGE OR ACUTE TERRITORIAL INFARCT. EVIDENCE OF ACUTE STROKE: NO. TECHNICAL DOCUMENTATION: JOB ID: [id number] Quality ID # [id number]: Final reports with documentation of one or more dose reduction techniques (e.g., Au tomated exposure control, adjustment of the mA and/or kV according to patient size, use of iterative reconstruction technique) 2010 [employer] All Rights Reserved Reading location - IP/workstation name: [email or web address]
[2018-10-09 18:49] LABS: APPEARANCE,URINE SLIGHTLY-CLOUDY; BILIRUBIN,URINE NEGATIVE (NEGATIVE); COLOR,URINE YELLOW; GLUCOSE, URINE NEGATIVE (NEGATIVE); KETONES,URINE NEGATIVE (NEGATIVE); LEUKOCYTE ESTERASE,URINE NEGATIVE (NEGATIVE); NITRITE,URINE NEGATIVE (NEGATIVE); PROTEIN,URINE 30 mg/dL (NEGATIVE); URINE SPECIFIC GRAVITY 1.024
[2018-10-09 20:52] VITALS: BP 176/113
--- NOTE | 2018-10-09 21:40 | EKG REPORT ---
SEVERITY:- ABNORMAL ECG - SINUS RHYTHM LEFT VENTRICULAR HYPERTROPHY BORDERLINE PROLONGED QT INTERVAL : Confirmed by: Jacqueline Armando MD 09-Oct-2018 21:39:59
== END 2018-10-09 20:52 | disposition left against medical advice (07) ==
LOC: ER 16:14
DX: G45.9 Transient cerebral ischemic attack, unspecified (principal); I10 Essential (primary) hypertension; I25.10 Atherosclerotic heart disease of native coronary artery without angina pectoris; Z79.02 Long term (current) use of antithrombotics/antiplatelets; Z79.82 Long term (current) use of aspirin; Z85.118 Personal history of other malignant neoplasm of bronchus and lung; Z85.830 Personal history of malignant neoplasm of bone; Z88.2 Allergy status to sulfonamides; Z53.20 Procedure and treatment not carried out because of patient's decision for unspecified reasons
CPT/HCPCS: 36415; 70450; 80053; 81001; 83605; 85025; 87040; 93005; 93010; 99285

== ENCOUNTER → 2018-11-03 | Outpatient (CLI) | payer MEDICARE ==
--- NOTE | 2018-11-03 20:17 | XCELERA REPORT ---
[address] [address] Transthoracic Echocardiogram Report Name: VIOLETTE IRIZARRY Age: 73 yrs Gender: Male : 1945 Patient Status: Outpatient Patient Location: [facility] Study Date: 11/03/2018 03:19 PM Reason For Study: TIA Ordering Physician: MARCIA ANDREW Performed By: Anu Cervantes Interpretation Summary Poor study on this GE machine.Electronic Publisher said pt difficult due to ribs /lung artefact, and 5'4" and 236#. Unable to r/o cardioembolic source. No signif pericardial effusion Aortic root not enlarged, but heavilu calcified aortic root, with restricted calcified RCC and mod calcified NCC of the 3 cusp AV, No by doppler, and no AR. No MS, midl MR, no MVP, unable to r/o vegetations, mild LA enlargement 45 mm Subaortic hypertrophy of IVS, otherwise mild/mod LVH with normal LVEF 66%, and stage I LVDD. No LVOT gradient RH is poorly visualized, TR poorly seen by color flow, doppler sahoed RVSP calculated as 29mm Hg, upper normal. IVC mildy enlarged, poor collapse<50%. MMode/2D Measurements & Calculations RVDd: 3.2 cm LVIDd: 4.9 cm FS: 36.5 % Ao root diam: 2.8 cm IVSd: 1.0 cm LVIDs: 3.1 cm EDV(Teich): 114.6 ml Ao root area: 6.1 cm2 LVPWd: 1.1 cm ESV(Teich): 38.9 ml EF(Teich): 66.1 % Doppler Measurements & Calculations MV E max kitty: MV dec slope: Ao V2 max: LV V1 max P.5 cm/sec 107.9 cm/sec 2.3 mmHg MV A max kitty: 282.5 cm/sec2 Ao max PG: LV V1 max: 93.1 cm/sec MV dec time: 0.24 sec 4.7 mmHg 75.3 cm/sec MV E/A: 0.74 LV dP/dt: 1045 mmHg/s PA V2 max: TR max kitty: 108.5 cm/sec 230.0 cm/sec PA max P.7 mmHg TR max P.2 mmHg Left Ventricle The left ventricle is normal in size. There is moderate asymmetric left ventricular hypertrophy. Proximal septal thickening is noted. The left ventricular ejection fraction is normal. LV EF is 66%. Doppler measurements suggest impaired left ventricular relaxation, which is associated with grade I/IV or mild diastolic dysfunction. No regional wall motion abnormalities noted. There is no thrombus. Right Ventricle The right ventricle is not well visualized secondary to technical limitations. Atria Right atrium not well visualized secondary to technical limitations. The left atrium is moderately dilated. The interatrial septum is intact with no evidence for an atrial septal defect. Mitral Valve The mitral valve is normal in structure and function. There is no evidence of mitral valve prolapse. There is no mitral valve stenosis. There is no mitral regurgitation noted. Aortic Valve The aortic valve is sclerotic and shows some degree of functional abnormality. The aortic valve is trileaflet. The aortic valve opens well. Cannot exclude aortic valvular vegetation. There is no aortic valve stenosis. No aortic regurgitation is present. Tricuspid Valve The tricuspid valve is not well visualized secondary to technical limitations. Best estimated RVSP is approximately 29 mm/Hg. Pulmonic Valve The pulmonic valve is not well visualized. There is no pulmonic valvular regurgitation. Great Vessels There is aortic root sclerosis/calcification. The aortic root is normal size. The inferior vena cava appeared normal and decreased < 50% with respiration (RAP 10-15 mmHg). Effusions There is no pericardial effusion. I WMSI = 1.00 % Normal = 100 Segments Size X - Cannot 2 - 4 - 1-2 small Interpret 1 - Normal Hypokinetic 3 - AkineticDyskinetic 3-5 moderate 5 - 6-14 large Aneurysmal 15-16 diffuse : MARCIA ANDREW Andre
--- NOTE | 2018-11-04 11:11 | RADIOLOGY REPORT (SQ) ---
EXAM DESCRIPTION: CAROTID DOPPLER COMPLETED DATE/TIME: 11/03/2018 3:16 pm REASON FOR STUDY: TIA G45.9 TRANSIENT CEREBRAL ISCHEMIC ATTACK, UNSPECIFIED COMPARISON: None. EXAM PARAMETERS: TECHNIQUE:Grayscale ultrasound, Doppler velocity and spectra, and color Doppler anca ges acquired of the extra-cranial carotid and vertebral arteries. Images stored on PACS. LIMITATIONS: None. FINDINGS: RIGHT CAROTID CCA Velocities: Within normal limits. ICA Velocities Peak systolic 0.56 m/s. End diastolic 0.09 m/s. Proximal ICA/CCA peak systolic ratio 1.2. Spectra normal. No significant plaque. LEFT CAROTID CCA Velocities: Within normal limits. ICA Velocities Peak systolic 0.56 m/s. End diastolic 0.2 m/s. Proximal ICA/CCA peak systolic ratio 1.4. Spectra normal. No significant plaque. VERTEBRAL ARTERIES: Antegrade flow. Normal waveforms. SUBCLAVIAN ARTERIES: No finding. OTHER: No other significant finding. IMPRESSION: NO HEMODYNAMICALLY SIGNIFICANT STENOSIS. COMMENT: PQRS 3100F: Velocity criteria are extrapolated from the diameter data as defined by the [facility] Hospitalety of Radiologists in Ultrasound Consensus Conference. Radiology 2003: 229; 340-346 TECHNICAL DOCUMENTATION: JOB ID: [id number] [facility]- All Rights Reserved Reading location - IP/workstation name: [email or web address]
== END ==
LOC: SP 15:12
PROVIDERS: ATTEND Physician Assistant
DX: G45.9 Transient cerebral ischemic attack, unspecified (principal)
CPT/HCPCS: 93306; 93880

== ENCOUNTER 2020-01-02 05:01 | Emergency (ER) | payer MEDICARE ==
--- NOTE | 2020-01-02 06:04 | EKG REPORT ---
SEVERITY:- ABNORMAL ECG - SINUS RHYTHM LEFT VENTRICULAR HYPERTROPHY : Confirmed by: Ciro Thompson MD 02-Jan-2020 06:03:47
[2020-01-02 06:09] LABS: ABSOLUTE BASOPHILS # (AUTO) 0.1 10^3/uL (0.0-0.2); ABSOLUTE EOSINOPHILS # (AUTO) 0.3 10^3/uL (0.0-0.6); ABSOLUTE LYMPHOCYTES (AUTO) 1.2 10^3/uL (0.5-4.7); ABSOLUTE MONOCYTES (AUTO) 1.4 10^3/uL (0.1-1.4); BASOPHILS % (AUTO) 0.8 % (0-2); HEMATOCRIT 40.5 % (37.9-51.0); HEMOGLOBIN 13.9 g/dL (13.5-17.0); MEAN CORPUSCULAR HEMOGLOBIN 29.4 pg (27.0-33.4); MEAN CORPUSCULAR HGB CONC 34.3 g/dL (32.0-36.0); MEAN CORPUSCULAR VOLUME 86 fl (80-97); MONOCYTES % (AUTO) 13.6 % (3-13); PLATELET COUNT 270 10^3/uL (150-450); RED BLOOD COUNT 4.73 10^6/uL (4.35-5.55); RED CELL DISTRIBUTION WIDTH 14.2 % (11.5-14.0); SEGMENTED NEUTROPHILS % (AUTO) 70.6 % (42-78); TOTAL CELLS COUNTED % (AUTO) 100 %; WHITE BLOOD COUNT 9.9 10^3/uL (4.0-10.5)
[2020-01-02 06:20] LABS: ALKALINE PHOSPHATASE 116 U/L (38-126); ANION GAP 10 (5-19); ASPARTATE AMINO TRANSFERASE 19 U/L (17-59); BILIRUBIN,TOTAL 0.6 mg/dL (0.2-1.3); BLOOD UREA NITROGEN 16 mg/dL (7-20); CALCIUM 9.4 mg/dL (8.4-10.2); CARBON DIOXIDE 28 mmol/L (22-30); CHLORIDE 100 mmol/L (98-107); GLUCOSE 113 mg/dL (75-110); TOTAL PROTEIN 6.9 g/dL (6.3-8.2)
[2020-01-02 06:21] LABS: ALCOHOL < 10 mg/dL (NONE DETECTED)
[2020-01-02 06:22] LABS: APPEARANCE,URINE CLEAR; BILIRUBIN,URINE NEGATIVE (NEGATIVE); COLOR,URINE STRAW; GLUCOSE, URINE NEGATIVE (NEGATIVE); KETONES,URINE NEGATIVE (NEGATIVE); LEUKOCYTE ESTERASE,URINE NEGATIVE (NEGATIVE); NITRITE,URINE NEGATIVE (NEGATIVE); PROTEIN,URINE NEGATIVE (NEGATIVE); URINE SPECIFIC GRAVITY 1.008; UROBILINOGEN,URINE NEGATIVE mg/dL (<2.0)
[2020-01-02 06:37] LABS: URINE AMPHETAMINES SCREEN NEGATIVE; URINE BARBITURATES SCREEN NEGATIVE; URINE BENZODIAZEPINES SCREEN NEGATIVE; URINE COCAINE SCREEN NEGATIVE; URINE MARIJUANA (THC) SCREEN NEGATIVE; URINE METHADONE SCREEN NEGATIVE; URINE PHENCYCLIDINE SCREEN NEGATIVE
--- NOTE | 2020-01-02 06:42 | ER Document Report ---
ED General - General Stated Complaint: AMS Time Seen by Provider: 01/02/20 06:05 Primary Care Provider: MARCIA ANDREW PA-C [Primary Care Provider] - Follow up as needed Mode of Arrival: Ambulatory Information source: Patient, Relative TRAVEL OUTSIDE OF THE [place] IN LAST 30 DAYS: No - HPI Onset: This morning Onset/Duration: Gradual Quality of pain: No pain Severity: Mild Pain Level: Denies Associated symptoms: Other - confusion, dizziness, weakness, incontinent Exacerbated by: Denies Relieved by: Denies Similar symptoms previously: Yes - patient has felt similar with prior strokes Recently seen / treated by doctor: No Notes: 74 year old male with a history of Metastatic Prostate Cancer, prior CVAs with no residual deficits on Plavix, CAD, HTN, HLD brought to the ER for altered mental status, weakness, and urinary incontinence. The patient lives with his who currently is sick with a viral illness. The patient's called the patinet's daughter to bring the patient to the ER since the patient was too weak to get out his chair early this morning, he wet himself, and he was confused (patient didnt know what year it was or who the president was). The patient says he feels pretty good right now and he doesnt feel confused. The patient does endorse a dry cough which has been going on for 2 days. The patient denies fevers, chills, sweats, nausea, vomiting, abdominal pain, chest pain. - Related Data Allergies/Adverse Reactions: Sulfa (Sulfonamide Antibiotics) Allergy (Verified 12/07/17 18:58) Past Medical History - General Information source: Patient, Relative - Social History Smoking Status: Former Smoker Frequency of alcohol use: Occasional Drug Abuse: None Lives with: Spouse/Significant other Family History: Reviewed & Not Pertinent, Hypertension Patient has suicidal ideation: No Patient has homicidal ideation: No - Past Medical History Cardiac Medical History: Reports: Hx Coronary Artery Disease, Hx Hypercholesterolemia, Hx Hypertension Neurological Medical History: Reports: Hx Cerebrovascular Accident. Denies: Hx Seizures Renal/ Medical History: Denies: Hx Peritoneal Dialysis Malignancy Medical History: Reports Hx Bone Cancer, Reports Hx Lung Cancer, Reports Hx Prostate Cancer GI Medical History: Reports: Hx Gastroesophageal Reflux Disease. Denies: Hx Hepatitis, Hx Hiatal Hernia, Hx Ulcerative Colitis Psychiatric Medical History: Reports: Hx Depression Infectious Medical History: Denies: Hx Hepatitis Past Surgical History: Reports: Other - Colonoscopy August 26, 2018 Review of Systems - Review of Systems Constitutional: Weakness EENT: No symptoms reported Cardiovascular: No symptoms reported Respiratory: Cough - nonproductive Gastrointestinal: No symptoms reported Genitourinary: No symptoms reported Male Genitourinary: No symptoms reported Musculoskeletal: No symptoms reported Skin: No symptoms reported Hematologic/Lymphatic: No symptoms reported Neurological/Psychological: Confusion, Other - Dizziness -: Yes All other systems reviewed and negative Physical Exam - Vital signs Vitals: Pulse Resp BP Pulse Ox 70 18 220/142 H 99 01/02/20 05:08 01/02/20 05:08 01/02/20 05:08 01/02/20 05:08 - Notes Notes: GENERAL: Well-appearing, well-nourished and in no acute distress. HEAD: Atraumatic, normocephalic. EYES: Pupils equal round and reactive to light, extraocular movements intact, sclera anicteric, conjunctiva are normal. ENT: Nares patent, oropharynx clear without exudates. Moist mucous membranes. NECK: Normal range of motion, supple without lymphadenopathy or JVD. LUNGS: Breath sounds clear to auscultation bilaterally and equal. No wheezes rales or rhonchi. HEART: Regular rate and rhythm without murmurs, rubs or gallops. ABDOMEN: Soft, nontender, normoactive bowel sounds. No guarding, no rebound. No masses appreciated. EXTREMITIES: Normal range of motion, no pitting or edema. No clubbing or cyanosis. NEUROLOGICAL: Cranial nerves II through XII grossly intact. Normal speech, normal gait. NIH stroke scale of 0. PSYCH: Normal mood, normal affect. SKIN: Warm, Dry, normal turgor, no rashes or lesions noted. Course - Vital Signs Vital signs: Temp Pulse Resp BP Pulse Ox 98.4 F 70 15 140/79 H 94 01/02/20 08:31 01/02/20 05:08 01/02/20 09:32 01/02/20 09:32 01/02/20 09:32 - Laboratory Result Diagrams: 01/02/20 05:30 01/02/20 05:30 Laboratory results interpreted by me: 01/02/20 01/02/20 01/02/20 05:30 05:30 08:02 RDW 14.2 H Lymph % (Auto) 12.0 L [place] % (Auto) 13.6 H Glucose 113 H Ammonia < 8.7 L - Diagnostic Test Radiology reviewed: Image reviewed, Reports reviewed - EKG Interpretation by Me EKG shows normal: Sinus rhythm, Closplint, Intervals, QRS Complexes, ST-T Waves Rate: Normal Rhythm: NSR Voltage: Consistant with LVH Discharge - Discharge Clinical Impression: Altered mental state Qualifiers: Altered mental status type: transient alteration of awareness Qualified Code(s): R40.4 - Transient alteration of awareness Hypertension Qualifiers: Hypertension type: unspecified Qualified Code(s): I10 - Essential (primary) hypertension Condition: Stable Disposition: HOME, SELF-CARE Instructions: High Blood Pressure ([facility]), Altered Mental Status ([facility]) Additional Instructions: Take your medications as prescribed. Keep a log of your blood pressure in the days to come and share this blood pressure log with your primary care doctor to ensure you dont need medication changes. Tell your primary care doctor you were in the ER and had had a urine analysis, blood work, an EKG, a chest xray, and a head CT scan all of which showed no acute process. Return to an ER if worse in anyway. Referrals: MARCIA ANDREW PA-C [Primary Care Provider] - Follow up as needed
--- NOTE | 2020-01-02 07:35 | RADIOLOGY REPORT (SQ) ---
EXAM DESCRIPTION: CT HEAD WITHOUT IV CONTRAST COMPLETED DATE/TME: 01/02/2020 06:24 CLINICAL HISTORY: 74 years, Male, eval for stroke. patient confused and dizzy COMPARISON: 10/09/2018 TECHNIQUE: Axial CT images of the brain were obtained without contrast. Sagittal and coronal reformats were performed. DLP [id number] Images stored on PACS. All CT scanners at this facility use dose modulation, iterative reconstruction, and/or weight based dosing when appropriate to reduce radiation dose to as low as reasonably achievable (ALARA). [facility]: Dose Right [facility]: CareDose [facility]: Dose Right [facility]: Teradose 4D [facility]: [employer] LIMITATIONS: None. FINDINGS: There is no acute cortical infarct, hemorrhage, mass, edema, hydrocephalus, or extra-axial fluid collection. There is a chronic infarct involving the right frontal lobe with mild ex vacuo dilatation of the right frontal horn. There are lacunar infarcts involving the bilateral basal ganglia. There is mild diffuse cerebral atrophy with periventricular and deep white matter chronic microvascular changes. No evidence of encephalomalacia along the left frontal lobe. Is mild mucosal thickening of the maxillary sinuses. The mastoid air cells are clear. There is no acute fracture. IMPRESSION: No significant change compared to the prior exam. No acute intracranial abnormality. Stable encephalomalacia along the right frontal lobe. No evidence of encephalomalacia along the left frontal lobe. TECHNICAL DOCUMENTATION: Quality ID # [id number]: Final reports with documentation of one or more dose reduction techniques (e.g., Automated exposure control, adjustment of the mA and/or kV according to patient size, use of iterative reconstruction technique) copyright 2011 [employer]- All Rights Reserved
--- NOTE | 2020-01-02 07:36 | RADIOLOGY REPORT (SQ) ---
EXAM DESCRIPTION: XR CHEST 2 VIEWS COMPLETED DATE/TME: 01/02/2020 06:23 CLINICAL HISTORY: 74 years, Male, pneumonia COMPARISON: 12/08/2017 NUMBER OF VIEWS: Two TECHNIQUE: Two views of the chest LIMITATIONS: None. FINDINGS: The lungs are clear. The heart is normal in size. There is no pneumothorax or pleural effusion. There is no acute fracture. IMPRESSION: No acute cardiopulmonary abnormality copyright 2010 [employer]- All Rights Reserved
[2020-01-02] MEDS ORDERED: LABETALOL HCL INJ 20 MG/4 ML DISP.SYRIN IV ONE (08:46)
[2020-01-02 09:48] VITALS: BP 140/79
== END 2020-01-02 10:11 | disposition home or self-care (01) ==
LOC: ER 05:01
DX: R40.4 Transient alteration of awareness (principal); I10 Essential (primary) hypertension; R41.0 Disorientation, unspecified; R42 Dizziness and giddiness; R53.1 Weakness; R32 Unspecified urinary incontinence; Z85.46 Personal history of malignant neoplasm of prostate; Z86.73 Personal history of transient ischemic attack (TIA), and cerebral infarction without residual deficits; I25.10 Atherosclerotic heart disease of native coronary artery without angina pectoris; Z79.899 Other long term (current) drug therapy; Z88.2 Allergy status to sulfonamides; Z87.891 Personal history of nicotine dependence
CPT/HCPCS: 93005; 99285; 96374; 36415; 80307 ×2; 82140; 83735; 85025; 80053; 81001; 84484; 71046; 70450; 93010; J3490